=== PATIENT | female | born 1985 | race African-American/Black ===

== ENCOUNTER 2020-09-09 11:41 | Outpatient (CLI) | payer OTHER, SELFPAY ==
[2020-09-09 12:52] LABS: T4 Thyroxine 8.68 ug/dL (5.53-11.0)
[2020-09-12 13:08] LABS: FSH 7.5 mIU/mL (***); LH 4.4 mIU/mL (***); Progesterone <0.2 ng/mL (***)
== END 2020-09-09 11:42 | disposition home or self-care (01) ==
PROVIDERS: PCP Internal Medicine; Visit Provider Obstetrics & Gynecology
DX: N92.6 Irregular menstruation, unspecified (principal)
CPT/HCPCS: 36415; 83001; 83002; 84144; 84436; 84443

== ENCOUNTER 2021-08-21 17:40 | Emergency (ER) | payer OTHER, SELFPAY ==
--- NOTE | 2021-08-21 17:50 | PC.NURSE ---
pt left department without triage
== END 2021-08-22 00:11 | disposition left against medical advice (07) ==
DX: Z53.21 Procedure and treatment not carried out due to patient leaving prior to being seen by health care provider (principal)
CPT/HCPCS: 36415; 84702; 99199

== ENCOUNTER 2021-08-21 18:00 | Outpatient (RCR) | payer OTHER, SELFPAY ==
[2021-08-21 18:56] LABS: Beta HCG Quantitative 334.79 mIU/ML
== END 2021-11-19 23:59 | disposition home or self-care (01) ==
LOC: ANHLAB 18:00
PROVIDERS: Emergency Medicine; PCP Internal Medicine
DX: Z32.00 Encounter for pregnancy test, result unknown (principal)
CPT/HCPCS: 36415; 84702

== ENCOUNTER 2021-08-22 17:31 | Outpatient (CLI) | payer OTHER, SELFPAY | END 2021-08-22 17:32 | disposition home or self-care (01) | DX: Z32.00 Encounter for pregnancy test, result unknown (principal) | CPT/HCPCS: 36415; 84702 ==

== ENCOUNTER 2021-11-20 15:51 | Outpatient (CLI) | payer OTHER, SELFPAY ==
[2021-11-20 16:14] LABS: Basophils Percent Auto 0.4 % (0.2-1.2); Eosinophils Absolute Auto 0.2 K/mm3 (0-0.3); Eosinophils Percent Auto 1.7 % (0-4.4); Hematocrit 34.9 % (37.0-47.0); Immature Granulocyte Absolute 0.06 K/mm3 (0.00-0.031); Immature Granulocyte Percent A 0.6 % (0-0.5); Lymphocytes Absolute Auto 1.92 K/mm3 (0.9-3.2); Lymphocytes Percent Auto 18.2 % (18.3-44.2); Mean Corpuscular HGB Conc 34.4 g/dl (32-36); Mean Corpuscular Volume 95.9 fl (80-100); Mean Platelet Volume 9.5 fl (7.4-10.4); Monocytes Absolute Auto 0.7 K/mm3 (0.1-0.6); Monocytes Percent Auto 6.7 % (2.6-8.5); Neutrophils Absolute Auto 7.6 K/mm3 (1.3-6.7); Neutrophils Percent Auto 72.4 % (45.5-73.1); Platelet Count Result 354 k/mm3 (150-375); Red Blood Count 3.64 M/mm3 (4.2-5.4); Red Cell Distribution Width 13.3 % (11.5-14.5); White Blood Count 10.5 K/mm3 (4.5-10.0)
[2021-11-20 18:14] LABS: HIV 1/2 Ab P24 Ag Result Negative (Negative)
[2021-11-21 00:32] LABS: Hepatitis B Surface Antigen Negative (Negative); Hepatitis C Virus Antibody Negative (Negative)
[2021-11-21 09:57] LABS: Rapid Plasma Reagin Non-Reactive (NonReactive)
== END 2021-11-20 15:52 | disposition home or self-care (01) ==
LOC: ANHLAB 15:54
PROVIDERS: Visit Provider Obstetrics & Gynecology
DX: Z34.90 Encounter for supervision of normal pregnancy, unspecified, unspecified trimester (principal); Z3A.00 Weeks of gestation of pregnancy not specified
CPT/HCPCS: 36415; 85025; 86592; 86703; 86803; 86850; 86900; 86901; 87340; G0432

== ENCOUNTER 2022-03-23 11:30 | Outpatient (RCR) | payer OTHER, SELFPAY ==
--- NOTE | ~2022-03-23 | US_ITS ---
US OB limited 03/30/2022 14:36 Indication: Low JOSIE. Procedure: High-resolution Limited obstetrical ultrasound Comparison: Ultrasound dated 03/23/2022 Findings: There is a single living intrauterine in vertex presentation. Placenta is anterio r without previa. Amniotic fluid index is normal measuring 12.5 cm. heart rate is 142 BPM. Impression: 1: Normal amniotic fluid index measures 12.5 cm (normal range for gestational age is 7.7-24.9 cm). Reviewed, dictated and finalized at location A. Impression: 1: Normal amniotic fluid index measures 12.5 cm (normal range for gestational a ge is 7.7-24.9 cm).
--- NOTE | ~2022-03-23 | US_ITS ---
US OB limited DATE: 03/23/2022 12:44 INDICATION: Decreased amniotic fluid measurement at doctor's office TECHNIQUE: Real-time imaging and Doppler analysis COMPARISON: None FINDINGS: Live altamirano intrauterine gestation with fetus in longitudinal lie, vertex presentation. heart rate of 141 bpm. Anterior placenta. Subjectively normal amount of amniotic fluid. Amniotic fluid index measures 13.1 cm, within normal ra nge. (5th percentile JOSIE: 7.9 cm; 95th percentile JOSIE: 24.9 cm) IMPRESSION: Amniotic fluid index measures 13.1 cm Reviewed, dictated and finalized at Location A. Reviewed, dictated and finalized at location B.
[2022-03-23 11:42] VITALS: BP 127/69; PULSE 82
--- NOTE | 2022-03-23 12:59 | PC.NURSE ---
Called Dr. Roldan,per her request, with NST and JOSIE results. Orders to d/c patient received.
[2022-03-30 14:49] VITALS: BP 130/66; PULSE 81
== END 2022-04-24 10:16 | disposition home or self-care (01) ==
LOC: ANHLDR 11:30
PROVIDERS: PCP Internal Medicine; Visit Provider Obstetrics & Gynecology
DX: O09.513 Supervision of elderly primigravida, third trimester (principal); Z3A.00 Weeks of gestation of pregnancy not specified
CPT/HCPCS: 59025; 76815

== ENCOUNTER 2022-04-05 22:16 | Observation (INO) | payer OTHER, SELFPAY ==
[2022-04-05 23:46] VITALS: BP 121/72; PULSE 77
[2022-04-06 00:01] VITALS: BP 126/70; PULSE 77
--- NOTE | 2022-05-04 07:53 | PM.OBTRLD ---
OB - Triage/Final Diagnosis Visit Information Comments/Additional reasons for admission: I have assessed the risk for this patient, Delaney Babb, and determined that she would benefit from observation care. Final Diagnosis (1) False labor: Code(s): O47.9 - False labor, unspecified Status: Acute
== END 2022-04-06 01:05 | disposition home or self-care (01) ==
PROVIDERS: Admitting Provider Obstetrics & Gynecology; PCP Internal Medicine; Visit Provider Obstetrics & Gynecology
DX: O47.9 False labor, unspecified (principal); Z3A.00 Weeks of gestation of pregnancy not specified
CPT/HCPCS: G0378; G0379

== ENCOUNTER 2022-04-06 05:03 | Observation (INO) | payer OTHER, SELFPAY ==
[2022-04-06] VITALS (9 sets, daily range): BP systolic 107–130; BP diastolic 59–78; PULSE 75–94; BMI 35.9
[2022-04-06] MEDS: NALBUPHINE HCL INJ 10 MG/ML AMPUL IM (05:52)
[2022-04-06] MEDS: NALBUPHINE HCL INJ 10 MG/ML AMPUL IV PUSH (05:53)
[2022-04-06] MEDS: LACTATED RINGERS 1,000 ML 100 ML IV CONT (05:53)
[2022-04-06 08:00] LABS: Appearance Urine Clear (Clear); Bilirubin Urine Negative (Negative); Color Urine Yellow (Yellow); Glucose Urine UA Negative (Negative); Ketones Urine Negative (Negative); Leukocyte Esterase Ur Negative LEU/UL (Negative); Nitrate Urine Negative (Negative); Protein Urine Negative (Negative); Urobilinogen Urine 0.2 mg/dL (<2.0); pH Urine 6.5 (5.0-9.0)
[2022-04-06 08:14] LABS: Add Urine Microscopic? YES; Blood Urine Trace-Intact (Negative)
[2022-04-06 08:16] LABS: Squamous Epithelial Cell Urine Occasional /hpf (Few); WBC Urine 0-3 /hpf
--- NOTE | 2022-05-04 13:00 | PM.OBTRLD ---
OB - Triage/Final Diagnosis Visit Information Comments/Additional reasons for admission: I have assessed the risk for this patient, Delaney Babb, and determined that she would benefit from observation care. Evaluation Laboratory results: Laboratory Tests 04/06/22 06:38 Urine Color Yellow Urine Appearance Clear Urine pH 6.5 Ur Specific [place] 1.010 Urine Protein Negative Urine Glucose (UA) Negative Urine Ketones Negative Ur Blood (Man) Trace-intact Urine Nitrate Negative Urine Bilirubin Negative Urine Urobilinogen 0.2 Leukocyte Esterase Rfl Negative Urine WBC 0-3 Ur Squamous Epith Cells Occasional Final Diagnosis (1) False labor: Code(s): O47.9 - False labor, unspecified Status: Acute
== END 2022-04-06 09:43 | disposition home or self-care (01) ==
PROVIDERS: Admitting Provider Obstetrics & Gynecology; PCP Internal Medicine; Visit Provider Obstetrics & Gynecology
DX: O47.9 False labor, unspecified (principal); Z3A.00 Weeks of gestation of pregnancy not specified
CPT/HCPCS: 81001; 96372; 96374; G0378; G0379; J2300; J7120

== ENCOUNTER 2022-04-08 14:18 | Outpatient (CLI) | payer OTHER, SELFPAY ==
--- NOTE | ~2022-04-08 | US_ITS ---
EXAMINATION: US renal BI DATE: 04/08/2022 15:58 INDICATION: Unspecified renal colic TECHNIQUE: Multiple ultrasound grayscale images of the kidneys were obtained. COMPARISON: None. FINDINGS: The right kidney measures 10.4 x 4.8 x 5.9 cm. The left kidney measures 10.5 x 5.8 x 5.7 cm. The kidn eys demonstrate normal echogenicity. There are normal arterial resistive indices in both kidneys rang ing from 0.67, 0.64 on the right and 0.64-0.66 on the left. Mild left hydronephrosis. No right-sided hydronephrosis. No stones identified. The bladder is partially decompressed bladder is normal. Appea r to be some mass effect upon the dome of the bladder from the partially visualized gravid uterus whi ch is not diagnostically evaluated. IMPRESSION: 1. Mild left hydronephrosis. Reviewed, dictated and finalized at location B.
== END 2022-04-08 14:19 | disposition home or self-care (01) ==
LOC: ANHIMG 14:18
PROVIDERS: PCP Internal Medicine; Visit Provider Obstetrics & Gynecology
DX: N23 Unspecified renal colic (principal); N13.30 Unspecified hydronephrosis
CPT/HCPCS: 76775

== ENCOUNTER 2022-04-19 18:49 | Inpatient (IN) | payer OTHER, SELFPAY ==
[2022-04-19] VITALS (19 sets, daily range): BP systolic 117–144; BP diastolic 63–93; PULSE 68–90; TEMP 36.2; BMI 36.5
--- NOTE | 2022-04-19 19:11 | LDADM ---
This patient, Delaney Babb, was admitted to Labor/Delivery/Recovery 107 on 04/19/22 at 18:49. Plans for labor, pain management and were discussed with patient. Patient/family oriented to hospital policies and general routines including ID bracelet, bed and alarms, visiting hours, pain management, procedures, bathroom and other care routines, personal items, smoking policy, room service/diet and guest tray routines, security routines, and visiting hours. Patient/Family are encouraged to report perceived risks to care and to ask questions if they do not understand what they are told or what they should do. See OBIX for further documentation.
[2022-04-19] MEDS: OXYTOCIN 30 UNITS/NS 500 ML 30 UNITS/500 ML BAG IV CONT (19:21)
[2022-04-19] MEDS: LACTATED RINGERS 1,000 ML 125 ML IV CONT (19:21)
[2022-04-19 19:27] LABS: Basophils Percent Auto 0.4 % (0.2-1.2); Eosinophils Absolute Auto 0.1 K/mm3 (0-0.3); Eosinophils Percent Auto 1.5 % (0-4.4); Hematocrit 33.5 % (37.0-47.0); Hemoglobin 11.1 g/dL (12.0-15.0); Immature Granulocyte Absolute 0.09 K/mm3 (0.00-0.031); Lymphocytes Absolute Auto 1.31 K/mm3 (0.9-3.2); Lymphocytes Percent Auto 14.1 % (18.3-44.2); Mean Corpuscular HGB Conc 33.1 g/dl (32-36); Mean Corpuscular Hemoglobin 32.3 pg (26-34); Mean Corpuscular Volume 97.4 fl (80-100); Mean Platelet Volume 10.4 fl (7.4-10.4); Monocytes Absolute Auto 0.8 K/mm3 (0.1-0.6); Monocytes Percent Auto 8.7 % (2.6-8.5); Neutrophils Absolute Auto 6.9 K/mm3 (1.3-6.7); Neutrophils Percent Auto 74.3 % (45.5-73.1); Platelet Count Result 252 k/mm3 (150-375); Red Blood Count 3.44 M/mm3 (4.2-5.4); Red Cell Distribution Width 16.3 % (11.5-14.5); White Blood Count 9.3 K/mm3 (4.5-10.0)
[2022-04-20] VITALS (105 sets, daily range): BP systolic 85–153; BP diastolic 44–113; PULSE 64–193; RESP 18; TEMP 36–36.8; O2SAT 90–100
--- NOTE | 2022-04-20 05:49 | WPDANESEPP ---
Anes - Eval Pre Procedure Procedure: labor epidural Date/Time: 04/20/22 05:49 Surgeon: oscar Preop Diagnosis: pain during labor Pre Op Diagnosis: IOL Patient Data Age: 36 Gender: F Height: 1.65 m Weight: 99.5 kg Last Vital Signs Temp 36.2 C L 04/20/22 04:18 Pulse 76 04/20/22 05:46 BP 134/88 04/20/22 05:46 O2 Del Method Room Air 04/19/22 19:10 Allergies Allergy/AdvReac Type Severity Reaction Status Date / Time adhesive tape Allergy Unknown Rash Verified 04/20/22 03:48 Home Medications Medication Instructions Recorded Confirmed Type docosahexaenoic acid 200 mg mg PO 10/01/21 04/06/22 History capsule ( DHA) valacyclovir 500 mg tablet 500 mg PO DAILY #90 tabs 11/27/21 04/20/22 Rx (Valtrex) ferrous sulfate 325 mg (65 mg 325 mg PO DAILY #90 tabs 03/04/22 04/06/22 Rx iron) tablet sertraline 50 mg tablet (Zoloft) 50 mg PO DAILY #30 tabs 04/02/22 04/20/22 Rx cyclobenzaprine 10 mg tablet 10 mg PO TID PRN muscle spasm #10 04/08/22 04/08/22 Rx tabs Laboratory Tests 04/19/22 04/19/22 04/19/22 19:18 19:18 19:18 WBC 9.3 K/mm3 K/mm3 (4.5-10.0) RBC 3.44 M/mm3 L M/mm3 (4.2-5.4) Hgb 11.1 g/dL L g/dL (12.0-15.0) Hct 33.5 % L % (37.0-47.0) MCV 97.4 fl fl (80-100) MCH 32.3 pg pg (26-34) MCHC 33.1 g/dl g/dl (32-36) RDW 16.3 % H % (11.5-14.5) Plt Count 252 k/mm3 k/mm3 (150-375) MPV 10.4 fl fl (7.4-10.4) Immature Gran % (Auto) 1.0 % H % (0-0.5) Neut % (Auto) 74.3 % H % (45.5-73.1) Lymph % (Auto) 14.1 % L % (18.3-44.2) [place] % (Auto) 8.7 % H % (2.6-8.5) Eos % (Auto) 1.5 % % (0-4.4) Baso % (Auto) 0.4 % % (0.2-1.2) Lymph # (Auto) 1.31 K/mm3 K/mm3 (0.9-3.2) [place] # (Auto) 0.8 K/mm3 H K/mm3 (0.1-0.6) Eos # (Auto) 0.1 K/mm3 K/mm3 (0-0.3) Baso # (Auto) 0.0 K/mm3 K/mm3 (0.0-0.1) Abs Immat Gran (auto) 0.09 K/mm3 H K/mm3 (0.00-0.031) Absolute Neuts (auto) 6.9 K/mm3 H K/mm3 (1.3-6.7) Absolute Nucleated RBC 0.0 K/mm3 K/mm3 (0.0-0.012) Nucleated RBC % 0.0 % % (0.0-0.2) RPR Pending Blood Type O Positive Antibody Screen Negative Patient hx anesthesia problems: none Family hx anesthesia problems: none Results Review: All pre-operative results and documents have been reviewed as part of the pre-operative evaluation. [facility] Past Medical History Medical History Asthma HSV infection Surgical History Surgical History H/O dilation and curettage H/O tubal ligation History of colposcopy History of tonsillectomy Family History Family History Father Hypertension Family history of elevated blood lipids Social History Social History Smoking status: Never smoker Second hand tobacco smoke exposure: No Alcohol intake: current Substance use: never Spiritual care concerns: No Exam Day of Procedure 04/20/22 05:49
[2022-04-20] MEDS: LACTATED RINGERS 1,000 ML 125 ML IV CONT (09:36)
--- NOTE | 2022-04-20 10:23 | PM.IMHP ---
H&P: HPI History of Present Illness Date/Time: 04/20/22 10:23 Chief Complaint: Medical induction of labor Narrative: Patient at 39 1/7 weeks admitted for [facility] social. EDC 04/25/2022 by IVF conception date. She had IVF secondary to prior tubal sterilization, new partner. PNC significant for AMA, grandmultip. H/o HSV. She is on suppression. She had normal survey and normal echo. echo performed due to IVF conception. GBS neg. labs reviewed. She has been counseled on risk benefit of MIL. She has opted for induction. She denies any HSV symptoms. Review of Systems Review of Systems: All systems reviewed & are unremarkable except as noted in HPI and below Constitutional: Constitutional: Reports no additional constitutional complaints and Denies headache(s) Eyes: Eyes: Denies spots in vision ENT: Reports system reviewed and no additional complaints, except as documented and Denies headache(s) Cardiovascular: Cardiovascular: Denies chest pain and Denies dyspnea Respiratory: Respiratory: Denies dyspnea Gastrointestinal: Gastrointestinal: Reports no additional gastrointestinal complaints Genitourinary: Genitourinary: Reports amenorrhea Musculoskeletal: Musculoskeletal: Reports no additional musculoskeletal complaints Integumentary/Breasts: Skin/Breast: Denies breast mass and Denies rash Neurologic: Denies headache(s) Psychiatric: Psychiatric: Reports no additional psychiatric complaints [facility] Past Medical History Medical History Asthma HSV infection Surgical History Surgical History H/O dilation and curettage H/O tubal ligation History of colposcopy History of tonsillectomy Family History Family History Father Hypertension Family history of elevated blood lipids Social History Social History Smoking status: Never smoker Second hand tobacco smoke exposure: No Alcohol intake: current Substance use: never Spiritual care concerns: No Meds Home Medications and Allergies Home Medications Medication Instructions Recorded Confirmed Type docosahexaenoic acid 200 mg mg PO 10/01/21 04/06/22 History capsule ( DHA) valacyclovir 500 mg tablet 500 mg PO DAILY #90 tabs 11/27/21 04/20/22 Rx (Valtrex) ferrous sulfate 325 mg (65 mg 325 mg PO DAILY #90 tabs 03/04/22 04/06/22 Rx iron) tablet sertraline 50 mg tablet (Zoloft) 50 mg PO DAILY #30 tabs 04/02/22 04/20/22 Rx cyclobenzaprine 10 mg tablet 10 mg PO TID PRN muscle spasm #10 04/08/22 04/08/22 Rx tabs Allergies Allergy/AdvReac Type Severity Reaction Status Date / Time adhesive tape Allergy Unknown Rash Verified 04/20/22 03:48 Vital Signs Vital Signs - 24 hr 04/19/22 19:11 04/19/22 19:16 04/19/22 19:31 Temperature Pulse Rate 90 88 87 Blood Pressure 143/92 H 141/90 H 136/83 Oxygen Delivery 04/19/22 19:46 04/19/22 20:01 04/19/22 20:16 Temperature Pulse Rate 81 81 79 Blood Pressure 144/90 H 140/86 134/86 Oxygen Delivery 04/19/22 20:31 04/19/22 21:15 04/19/22 21:17 Temperature 97.2 F L Pulse Rate 80 81 79 Blood Pressure 136/77 130/81 137/80 Oxygen Delivery 04/19/22 21:31 04/19/22 21:46 04/19/22 22:01 Temperature Pulse Rate 86 82 68 Blood Pressure 135/93 H 139/85 141/81 H Oxygen Delivery 04/19/22 22:16 04/19/22 22:31 04/19/22 22:46 Temperature Pulse Rate 89 88 77 Blood Pressure 133/83 126/83 136/86 Oxygen Delivery 04/19/22 23:01 04/19/22 23:16 04/19/22 23:31 Temperature Pulse Rate 77 79 84 Blood Pressure 117/63 118/64 131/64 Oxygen Delivery 04/19/22 23:46 04/20/22 00:01 04/20/22 00:05 Temperature 97.5 F L Pulse Rate 84 81 Blood Pressure 129/74 135/71 Oxygen Delivery 04/20/22 00
[2022-04-20 10:35] LABS: Rapid Plasma Reagin Non-Reactive (NonReactive)
--- NOTE | 2022-04-20 10:45 | PM.OBPNVD ---
OB - PN: Subj Subjective Date/time seen: 04/20/22 10:45 Interval history: FHT 140 Cat 1 ctx q 4 cervix 3/60/-2. AROM clearat 0727. Continue pitocin. OB - PN: Obj Data Labs CBC & Chem 7: 04/19/22 19:18 Labs: Laboratory Results - last 24 hr 04/19/22 04/19/22 04/19/22 19:18 19:18 19:18 WBC 9.3 RBC 3.44 L Hgb 11.1 L Hct 33.5 L MCV 97.4 MCH 32.3 MCHC 33.1 RDW 16.3 H Plt Count 252 MPV 10.4 Immature Gran % (Auto) 1.0 H Neut % (Auto) 74.3 H Lymph % (Auto) 14.1 L [place] % (Auto) 8.7 H Eos % (Auto) 1.5 Baso % (Auto) 0.4 Lymph # (Auto) 1.31 [place] # (Auto) 0.8 H Eos # (Auto) 0.1 Baso # (Auto) 0.0 Abs Immat Gran (auto) 0.09 H Absolute Neuts (auto) 6.9 H Absolute Nucleated RBC 0.0 Nucleated RBC % 0.0 RPR Non-reactive Blood Type O Positive Antibody Screen Negative OB - PN A/P Time Spent With Patient Time: Total time spent is greater than 50% in coordination of care (as documented) at patient's floor/unit and/or counseling patient:
--- NOTE | 2022-04-20 11:35 | WPDANESEPPF ---
Anes - Initial Pre Proc Eval Date/Time: 04/20/22 11:35 Surgeon: Akash Roldan MD Pre Op Diagnosis: IOL Patient Data Age: 36 Gender: F Height: 1.65 m Weight: 99.5 kg Last Vital Signs Temp 36.0 C L 04/20/22 10:25 Pulse 81 04/20/22 11:35 BP 132/72 04/20/22 11:35 Pulse Ox 98 04/20/22 11:34 O2 Del Method Room Air 04/19/22 19:10 Allergies Allergy/AdvReac Type Severity Reaction Status Date / Time adhesive tape Allergy Unknown Rash Verified 04/20/22 03:48 Home Medications Medication Instructions Recorded Confirmed Type docosahexaenoic acid 200 mg mg PO 10/01/21 04/06/22 History capsule ( DHA) valacyclovir 500 mg tablet 500 mg PO DAILY #90 tabs 11/27/21 04/20/22 Rx (Valtrex) ferrous sulfate 325 mg (65 mg 325 mg PO DAILY #90 tabs 03/04/22 04/06/22 Rx iron) tablet sertraline 50 mg tablet (Zoloft) 50 mg PO DAILY #30 tabs 04/02/22 04/20/22 Rx cyclobenzaprine 10 mg tablet 10 mg PO TID PRN muscle spasm #10 04/08/22 04/08/22 Rx tabs Laboratory Tests 04/19/22 04/19/22 04/19/22 19:18 19:18 19:18 WBC 9.3 K/mm3 K/mm3 (4.5-10.0) RBC 3.44 M/mm3 L M/mm3 (4.2-5.4) Hgb 11.1 g/dL L g/dL (12.0-15.0) Hct 33.5 % L % (37.0-47.0) MCV 97.4 fl fl (80-100) MCH 32.3 pg pg (26-34) MCHC 33.1 g/dl g/dl (32-36) RDW 16.3 % H % (11.5-14.5) Plt Count 252 k/mm3 k/mm3 (150-375) MPV 10.4 fl fl (7.4-10.4) Immature Gran % (Auto) 1.0 % H % (0-0.5) Neut % (Auto) 74.3 % H % (45.5-73.1) Lymph % (Auto) 14.1 % L % (18.3-44.2) [place] % (Auto) 8.7 % H % (2.6-8.5) Eos % (Auto) 1.5 % % (0-4.4) Baso % (Auto) 0.4 % % (0.2-1.2) Lymph # (Auto) 1.31 K/mm3 K/mm3 (0.9-3.2) [place] # (Auto) 0.8 K/mm3 H K/mm3 (0.1-0.6) Eos # (Auto) 0.1 K/mm3 K/mm3 (0-0.3) Baso # (Auto) 0.0 K/mm3 K/mm3 (0.0-0.1) Abs Immat Gran (auto) 0.09 K/mm3 H K/mm3 (0.00-0.031) Absolute Neuts (auto) 6.9 K/mm3 H K/mm3 (1.3-6.7) Absolute Nucleated RBC 0.0 K/mm3 K/mm3 (0.0-0.012) Nucleated RBC % 0.0 % % (0.0-0.2) RPR Non-reactive (NonReactive) Blood Type O Positive Antibody Screen Negative Patient hx anesthesia problems: none Family hx anesthesia problems: none Results Review: All pre-operative results and documents have been reviewed as part of the pre-operative evaluation. [facility] Past Medical History Medical History Asthma HSV infection Surgical History Surgical History H/O dilation and curettage H/O tubal ligation History of colposcopy History of tonsillectomy Family History Family History Father Hypertension Family history of elevated blood lipids Social History Social History Smoking status: Never smoker Second hand tobacco smoke exposure: No Alcohol intake: current Substance use: never Spiritual care concerns: No Anes - Eval Final PreProcedure Day of Procedure 04/20/22 11:35 Patient weight: obese Heart: regular rate and rhythm Lungs: clear to auscultation Neurological: alert and oriented ASA classification: III Emergent: no Anesthetic plan: proceed Anesthesia type and monitoring: regional epidural and standard monitoring Results Review: All pre-operative results and documents have been reviewed as part of the pre-operative evaluation. Informed Consent: The patient's anesthetic plan and its attendant risks and benefits were discussed with the patient/family/POA. Questions were solicited and answers provided to the satisfaction of the patient/family/POA.
--- NOTE | 2022-04-20 13:00 | PM.OBPRVD ---
OB - Delivery Note Procedure Delivery date: 04/20/22 Procedure: Spontaneous vaginal delivery Induction method: Per Pitocin Protocol Delivery augmentation: Rupture of Membranes (clear at 0727) Delivery monitor: External FHT Route of delivery: Episiotomy description: None Laceration Description: None Specimen: No Quantitative Blood Loss (ml): 300 Anesthesia type: Epidural Disposition: Floor Complications: None Narrative: Patient admitted for MIL on evening of 04/19/2022. She was started on Pitocin. She started having contractions the morning of 04/20/2022. She had AROM clear at 0727. She progressed to active labor. She received an epidural upon request. She was 4-5 at that time. Epidural placed. She progressed to complete. She pushed once and delivered a female infant over intact perineum. Anterior shoulders delivered and the rest of the infant was delivered. 's nose and mouth suctioned with bulb. placed on maternal abdomen. Delayed cord clamping for 45 seconds until cord was a pulsatile. Cord gases and cord blood obtained. Pitocin was started. Placenta delivered spontaneously and intact. There were trailing membranes which were eased out with the ring forceps. The lower uterine cavity was explored and small amount of membranes obtains. She had a small gush of blood. The cavity was swept and minimal membranes obtained. Uterus firm. She was given 1000ug cytotec and Trenexamic acid for the persistent lochia and her risk of bleeding. Baby Date of : 04/20/22 Time of : 12:44 Weeks of gestation at delivery: 39 gender: Female Weight (pounds): 7 Weight (ounces): 3 presentation: vertex position: Right Occiput Anterior Placenta delivery description: Spontaneous and Expressed (trailing membranes) Cord Vessel Description: Delayed Cord Clamping score one minute: 8 score five minutes: 8
[2022-04-20] MEDS: miSOPROStol 200 MCG TABLET 1000 MCG RECTAL (13:07)
[2022-04-20] MEDS: OXYTOCIN 30 UNITS/NS 500 ML 30 UNITS/500 ML BAG 125 UNITS IV CONT (13:09)
[2022-04-20] MEDS: TRANEXAMIC ACID 1,000 MG/10 ML AMPUL 1000 MG IV PUSH (13:15)
[2022-04-20] MEDS: ACETAMINOPHEN 325 MG TABLET 650 MG PO (20:05)
[2022-04-20] MEDS: IBUPROFEN 600 MG TABLET PO (20:05)
[2022-04-20] MEDS: LANOLIN (LANSINOH) 7.5 GM CREAM 1 APPLIC TOPICAL (20:07)
[2022-04-21] MEDS: IBUPROFEN 600 MG TABLET PO ×2 (02:23→09:12)
[2022-04-21] MEDS: ACETAMINOPHEN 325 MG TABLET 650 MG PO ×2 (02:23→09:12)
[2022-04-21 04:10] VITALS: BP 119/75; PULSE 86; RESP 18; TEMP 36.7
[2022-04-21 05:16] LABS: Hematocrit 29.6 % (37.0-47.0); Hemoglobin 9.8 g/dL (12.0-15.0)
--- NOTE | 2022-04-21 08:00 | P.PNOB_ITS ---
OB - PN: Subj Subjective Date/time seen: 04/21/22 08:00 Interval history: She has some back pain. She is tolerating Tylenol and Motrin. Patient comments: pain well controlled, tolerating diet and other (Decreasing lochia.) baby status: doing well and nursing well [place] feeding status: exclusively breast feeding OB - PN: Obj Data Labs CBC & Chem 7: 04/21/22 03:46 Labs: Laboratory Results - last 24 hr 04/19/22 04/21/22 19:18 03:46 Hgb 9.8 L Hct 29.6 L RPR Non-reactive OB - PN A/P Plan day: 1 Plan: routine care Comments: Patient doing well. She wants to go home. Discussed discharge precautions. Discharge home today. Time Spent With Patient Time: Total time spent is greater than 50% in coordination of care (as documented) at patient's floor/unit and/or counseling patient: Exam Const: General: comfortable and no acute distress Eyes: General: appearance normal, both eyes and all related structures Resp: Effort & Inspection: normal respiratory effort GI: Inspection: normal to inspection Other: fundus firm below umbilicus nontender : Other: perineum normal Neuro: General: oriented to person, oriented to place and oriented to time Extrem: General: normal to inspection (no calf tenderness, trace edema) Psych: Affect: normal affect Other: Abd: fundus firm below umbilicus, nontender Perineum: healing Ext: nontender
--- NOTE | 2022-04-21 08:04 | PM.DS ---
DS: Admitting Diagnosis Discharge Date 04/21/2022 Admitting Diagnosis Medical induction of labor DS: Discharge Diagnosis Discharge Diagnosis (1) Encounter for induction of labor: Code(s): Z34.90 - Encounter for supervision of normal , unspecified, unspecified trimester Status: Acute DS: Summary Hospital Course Reason for hospitalization: medical induction of labor Hospital Course: Patient admitted on 04/19/2022 for induction of labor with Pitocin. She had an uncomplicated vaginal delivery on 04/20/2022 of a baby girl. she did well. She was ambulating well, tolerating regular diet, had adequate pain control. She had mild antepartum and anemia, asymptomatic. She was on iron supplementation. She was discharged home on 04/21/2022. Discharge precautions discussed. Status at Discharge Functional status at discharge: independent ambulation Time Spent with Patient Time attestation: Total time spent providing and/or coordinating discharge services: Exam Const: General: cooperative Orientation/consciousness: oriented to person, oriented to place and oriented to time HENMT: General nose exam: Normal external nose present Eyes: General: appearance normal, both eyes and all related structures Resp: Effort & Inspection: normal respiratory effort GI: Inspection: normal to inspection Skin: General skin exam: normal color Neuro: General: oriented to person, oriented to place and oriented to time Extrem: General: normal to inspection and no calf tenderness Psych: Appearance: grossly normal Mental Status: mental status grossly normal DS: Data Data Completed and Pending Labs on day of discharge: Labs from last 24 hours 04/21/22 04/19/22 03:46 19:18 Hgb 9.8 L Hct 29.6 L RPR Non-reactive Procedures/Treatments: Induction of labor. Spontaneous vaginal delivery. Discharge Plan Discharge Attending physician on discharge: Akash Roldan Consulting providers: Larry Durant Discharging Clinician: Aaksh Roldan Anticipated Discharge Date/Time: 04/21/22 07:57 Patient Disposition: Home, Self-Care Activity: may shower and pelvic rest Diet: regular Discharge Instructions: Pelvic rest for 4-6 weeks. May take over the counter Ibuprofen or Tylenol for pain. Call if saturating more than a pad an hour, leg redness, pain and swelling, temperature>100.4. No strenuous activity. Take daily vitamin. Take daily iron supplement, 325mg ferrous sulfate daily for one month. Patient Instructions: Antibiotic Form Stand Alone Forms: General Discharge Information Follow-up/Referrals: Akash Roldan MD [Physician] - 4 Weeks Discharge Medications: No Action cyclobenzaprine 10 mg tablet 10 mg PO TID PRN (Reason: muscle spasm) Qty: 10 0RF DHA 200 mg capsule PO valacyclovir [Valtrex] 500 mg tablet 500 mg PO DAILY Qty: 90 2RF ferrous sulfate 325 mg (65 mg iron) tablet 325 mg PO DAILY Qty: 90 0RF sertraline [Zoloft] 50 mg tablet 50 mg PO DAILY Qty: 30 1RF Rx Instructions: start after completing the 25mg dose Date of admission: 04/19/22 18:49 Primary Care Provider: Maureen Vee Admitting Provider: Akash Roldan Attending physician on admission: Akash Roldan Condition: Stable
[2022-04-21 09:10] VITALS: BP 126/80; PULSE 89; RESP 16; TEMP 36.8; O2SAT 97
[2022-04-21] MEDS: MULTIVIT/MIN/PREN/FOL AC/IRON TABLET 1 TAB PO (09:12)
[2022-04-21] MEDS: DOCUSATE SODIUM 100 MG CAPSULE PO (09:12)
[2022-04-21] MEDS: TETANUS,DIPHTHERIA,AC PERTUSSIS ADULT (0.5 ML) BOOSTRIX IM (09:17)
--- NOTE | 2022-04-21 09:17 | WPDANLDPN2 ---
Anes-Prog Note L&D Date/Time: 04/21/22 09:17 Comfortable throughout: labor and delivery Neuraxial method: epidural Epidural/Spinal procedure site: clean & non-tender Neuro status: Neuro function grossly intact. Cardiovascular status: normal Respiratory status: normal Airway patency: baseline Mental status: baseline Post-Op hydration status: normal Vital Signs: Last Vital Signs Temp 98.0 F 04/21/22 04:10 Pulse 86 04/21/22 04:10 Resp 18 04/21/22 04:10 BP 119/75 04/21/22 04:10 Pulse Ox 100 04/20/22 12:42 O2 Del Method Room Air 04/21/22 04:14 Pain score (VAS): 0 Post-procedural complaints: none Patient feedback: Patient satisfied with anesthetic care.
[2022-04-21 12:00] VITALS: BP 138/81; PULSE 82; RESP 16; TEMP 36.8; O2SAT 98
[2022-04-22 10:35] VITALS: BP 124/76; PULSE 92; RESP 18; TEMP 37.4; O2SAT 100
== END 2022-04-21 14:34 | disposition home or self-care (01) | DRG 807 ==
LOC: ANHLDR 20:50 → ANHOB2 04-20 15:48
PROVIDERS: Admitting Provider Obstetrics & Gynecology; PCP Internal Medicine; Visit Provider Obstetrics & Gynecology
DX: O98.52 Other viral diseases complicating childbirth (principal); Z37.0 Single live birth; B00.9 Herpesviral infection, unspecified; O43.893 Other placental disorders, third trimester; O99.02 Anemia complicating childbirth; O76 Abnormality in fetal heart rate and rhythm complicating labor and delivery; Z3A.39 39 weeks gestation of pregnancy
CPT/HCPCS: 36415; 85014; 85018; 85025; 86592; 86850; 86900; 86901; 90715; A9270; J2590; J2795; J7120

== ENCOUNTER 2022-09-11 11:30 | Outpatient (RCR) | payer OTHER, SELFPAY ==
--- NOTE | 2022-09-04 14:07 | PTOPEVAL1 ---
Assessment and note entered by Eimly Andrade DPT Evaluation Information Assessment Status Evaluation Reported Pain Level Pain Score 0: Self Report Additional Pain Score Comments Pt reports pain 0/10-7/10 highest in her low back and pelvic floor. Pt has a history of 7 vaginal deliveries, most recent 04/20/22. She reports pain with walking, sit to stand, and bed transfers and has had pain with pelvic exam, tampon use, and intercourse. Describes pain sometimes as shooting. Assessment PT Clinical Summary The patient is presenting to skilled therapy with a several month history of pelvic floor and LBP. She presents with SIJ impairments, decreased hip and core strength and pain upon palpation of pelvic floor muscles. She will benefit from therapy to address her pain and safely return to [facility]. Plan of Care Interventions Electrical Stimulation,Hot Pack/Cold Pack,Manual Therapy,Neuro Re-education,Patient/Caregiver Educati,Therapeutic Activities,Therapeutic Exercise PT Services Indicated Yes Treatment Frequency and 1 x a week for 4 weeks Duration These treatments will address the objective and functional deficits as defined above. The patient will be advanced safely and appropriately in order for the patient to progress towards his/her prior level of function. Additional exercises will be introduced and as well as a comprehensive home exercise program upon discharge, if needed, ?to ensure carryover of functional gains achieved in the clinic. This treatment plan has been reviewed and agreement upon by the patient.
--- NOTE | 2022-11-27 10:21 | PTOPDC ---
Assessment and note entered by Emily Andrade, DPT Evaluation Information Assessment Status Discharge - Pt Not Present Assessment PT Clinical Summary Patient has not attended therapy since 09/11/22. She will be discharged and need a new script to resume therapy in the future.
== END 2022-11-27 10:53 | disposition home or self-care (01) ==
LOC: ANHPT 11:30
PROVIDERS: PCP Internal Medicine; Visit Provider Obstetrics & Gynecology
DX: R10.2 Pelvic and perineal pain (principal)
CPT/HCPCS: 97110; 97140; 97530

== ENCOUNTER 2025-04-12 17:31 | Emergency (ER) | payer OTHER, SELFPAY ==
--- NOTE | ~2025-04-12 | CT_ITS ---
CT abdomen pelvis w con Ordering provider: Odilia Sullivan History: 39 years Female with . abd pain, N/V/D x 1w . Comparison: None. Technique: CT abdomen and pelvis with IV and without oral contrast. Automated exposure control and it erative reconstruction technique were employed. The dose-length product was 338.33 mGy-cm. 100 mL Omn ipaque 350 was given IV. Findings: Bilateral breast implants with rupture on the right side and adjacent fluid seen medially.. VISUALIZED LOWER CHEST: Normal. Trace of pericardial effusion. UPPER ABDOMINAL ORGANS: Liver: Normal. Gallbladder: Normal. Spleen: Varicosities are seen around the spleen which may indicate portal hypertension. Clinical misti elation advised.. Stomach/duodenum: Normal. Pancreas: Slightly prominent pancreatic tail which may indicate pancreatitis. Clinical correlation ad vised Adrenals: Normal. Kidneys: Normal. PELVIC ORGANS: The bladder is normal. BOWEL AND MESENTERY: Colon: No evidence of diverticulitis. The appendix is not demonstrated. Small Bowel: Normal. No obstruction. Peritoneum/mesentery: No free air or free fluid. No mesenteric lymphadenopathy. RETROPERITONEUM: Normal aorta. No retroperitoneal lymphadenopathy. MUSCULOSKELETAL: Superficial soft tissues: The superficial soft tissues are normal. Bones: Age appropriate degenerative changes of the spine. IMPRESSION: 1. No evidence of appendicitis, diverticulitis or intestinal obstruction. 2. Prominent pancreatic tail which may indicate pancreatitis. Clinical correlation and further evalu ation advised. 3. Prominent varicose veins around the spleen extending to the left renal vein which raises the poss ibility of portal hypertension.. Reviewed, dictated and finalized at location A. IMPRESSION: 1. No evidence of appendicitis, diverticulitis or intestinal obstruction. 2. Prominent pancreatic tail which may indicate pancreatitis. Clinical correla tion and further evaluation advised. 3. Prominent varicose veins around the spleen extending to the left renal vein which raises the possibility of portal hypertension..
--- OUTSIDE RECORDS SUMMARY | 2025-04-12 17:33 | XMS_ITS | Clinical Summary ---
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 Gender Identity Female 11/10/2024 8:39 AM COW WASHER Sexual Orientation Not on file Plan of Treatment Health Maintenance Due Date Last Done Comments DTAP/TDAP/TD VACCINES (1 - Tdap) 2004 HEPATITIS B VACCINES (1 of 3 - 19+ 3-dose series) 2004 HPV/Cotest (21-29) 2006 CERVICAL CANCER SCREENING 2015 HPV/Cotest (30-65) 2015 PAP SMEAR 2015 INFLUENZA VACCINE (#1) 2024 HPV VACCINES Aged Out No longer eligi ble based on patient's age to complete this topic Insurance AETNA CHOICE POS II Care Teams Straw Hat Machine Operator Relationship Specialty Start Date End Date Jordan Vick MD [address] [place] [id number] PCP - General Internal Medicine 10/23/21
--- NOTE | 2025-04-12 17:38 | ED_ITS ---
HPI - Nausea/Vomiting/Diarrhea General Chief complaint: Nausea/Vomiting/Diarrhea <LELE Campbell Last Filed: 04/13/25 11:04> Stated complaint: n/v/d, abd pain since 1300, lightheadedness <LELE Campbell Last Filed: 04/13/25 11:04> Time Seen by Provider: 04/12/25 17:38 <LELE Campbell Last Filed: 04/13/25 11:04> Focused HPI: This is a 39 year old female that presents to the ER for abdominal pain, nausea, vomiting. Ongoing since earlier this afternoon. GENERAL: Uncomfortable, well-nourished, and in no acute distress. HEAD: Normocephalic, atraumatic. CHEST: Clear to auscultation. ?No respiratory distress. HEART: Regular rate and rhythm.? NEURO: ?Alert and oriented x3. Patient screened in triage and initial orders placed.? ?Additional care and disposition to be based upon?diagnostic testing and treatment. <LELE Campbell Last Filed: 04/13/25 11:04> Focused HPI: This is a 39 year old female that presents to the ER for abdominal pain, nausea, vomiting. Ongoing since earlier this afternoon. GENERAL: Uncomfortable, well-nourished, and in no acute distress. HEAD: Normocephalic, atraumatic. CHEST: Clear to auscultation. ?No respiratory distress. HEART: Regular rate and rhythm.? NEURO: ?Alert and oriented x3. Patient screened in triage and initial orders placed.? ?Additional care and disposition to be based upon?diagnostic testing and treatment. <LELE Michaels Last Filed: 04/13/25 02:48> Source: patient <LELE Michaels Last Filed: 04/13/25 02:48> Mode of arrival: ambulatory <LELE Michaels Last Filed: 04/13/25 02:48> Limitations: no limitations <LELE Michaels Last Filed: 04/13/25 02:48> History of Present Illness HPI Narrative: Patient reports that symptoms have been ongoing for the past 1 week, but became worse today. She notes she has been under immense stress at work and is actually on stress leave due to this. She saw her primary care doctor earlier this week and was prescribed Bentyl. She does report that this has helped slightly with her symptoms. 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 Reported multiple episodes of emesis. Does still feel nauseous currently. Denies fevers, sick contacts, hematemesis, rectal bleeding, melena. <Odilia Sullivan PA-C - Last Filed: 04/13/25 02:48> Related Data Allergies/Adverse reactions: Allergies Allergy/AdvReac Type Severity Reaction Status Date / Time adhesive tape Allergy Unknown Rash Verified 12/28/23 15:02 <Felicia Woody PA-C - Last Filed: 04/13/25 11:04> Review of Systems 2 Review of Systems: All systems reviewed & are unremarkable except as noted in HPI. <Odilia Sullivan PA-C - Last Filed: 04/13/25 02:48> All systems reviewed & are unremarkable except as noted in HPI and below < Odilia Sullivan PA-C - Last Filed: 04/13/25 02:48> [facility] Past Medical History Medical History: Medical History HSV infection Asthma <Felicia Woody PA-C - Last Filed: 04/13/25 11:04> Surgical History Surgical History: Surgical History H/O breast augmentation H/O tubal ligation History of tonsillectomy History of colposcopy H/O dilation and curettage <Felicia Woody PA-C - Last Filed: 04/13/25 11:04> Family History Family History: Family History Father Hypertension Family history of elevated blood lipids <Felicia Woody PA-C - Last Filed: 04/13/25 11:04> Social History Social History: Social History Smoking status: Never smoker Second hand tobacco smoke exposure: No Alcohol intake: current Substance use: never Do You Feel Safe in your Home?: Yes Lack of Transportation: No Lack of Food: Never True Current Housing: I Have Housing Concerned About Future Housing: No Difficulty Paying Gas/Electric Bills: No Difficulty Paying for Meds: No Currently Unemployed: No Education: Trade/Vocational Certificate Difficulty w/ Childcare or Family Care: No Spiritual care concerns: No <Felicia Woody PA-C - Last Filed: 04/13/25 11:04> Exam 2 Narrative: GENERAL: Well appearing, well-nourished, non-toxic, in no acute distress. HEAD: Normocephalic, atraumatic. RESPIRATORY: Airway patent, respirations nonlabored. Clear to auscultation bilaterally, no rales, rhonchi, wheezing. CARDIOVASCULAR: Regular rate and rhythm without murmurs, rubs, or gallops. ABDOMINAL: Soft, mild diffuse tenderness, no significant focal tenderness or rebound, nondistended. Normoactive BS. MUSCULOSKELETAL: Moves all extremities. No gross deformities. SKIN: Warm, dry, normal color. NEURO: A&O X3. Speech clear. Cranial nerves II-XII grossly intact. Steady gait. No ataxic movements. PSYCHIATRIC: Appropriate mood and affect. Normal interaction. <Odilia Sullivan PA-C - Last Filed: 04/13/25 02:48> Course Vital Signs Vital signs: Vital Signs Temperature 98.3 F 04/12/25 18:24 Pulse Rate 90 04/12/25 18:24 Respiratory Rate 20 04/12/25 18:24 Blood Pressure 120/72 04/12/25 18:24 Pulse Oximetry 100 04/12/25 18:24 Oxygen Delivery Room Air 04/12/25 18:24 Temperature 99.4 F 04/12/25 20:25 Pulse Rate 78 04/12/25 23:59 Respiratory Rate 16 04/12/25 23:59 Blood Pressure 124/86 04/12/25 23:59 Pulse Oximetry 98 04/12/25 23:59 Oxygen Delivery Room Air 04/12/25 18:24 <Felicia Woody PA-C - Last Filed: 04/13/25 11:04> Vital Signs Temperature 98.3 F 04/12/25 18:24 Pulse Rate 90 04/12/25 18:24 Respiratory Rate 20 04/12/25 18:24 Blood Pressure 120/72 04/12/25 18:24 Pulse Oximetry 100 04/12/25 18:24 Oxygen Delivery Room Air 04/12/25 18:24 Temperature 99.4 F 04/12/25 20:25 Pulse Rate 78 04/12/25 23:59 Respiratory Rate 16 04/12/25 23:59 Blood Pressure 124/86 04/12/25 23:59 Pulse Oximetry 98 04/12/25 23:59 Oxygen Delivery Room Air 04/12/25 18:24 <LELE Michaels Last Filed: 04/13/25 02:48> MDM - Nausea/Vomiting/Diarrhea MDM Narrative Medical decision making narrative: Patient presented to ED with 1 week history of abdominal pain/cramping, diarrhea, worsening today and associated with nausea/vomiting today. Does note that she has been under increased stress with work. Vital signs are stable upon arrival. Patient is in no acute distress. Cbc with blood cell count of 10.0. H&H is stable. CMP is unremarkable. Stable electrolytes. Stable kidney function. Normal LFTs and lipase. UA with evidence of dehydration, no significant signs of infection. Urine is negative. CT scan of abdomen/pelvis was obtained and without evidence of obstruction, infection. Did show prominent pancreatic tail, recommended correlation with pancreatic labs. Lipase is within normal range. Patient without any significant epigastric tenderness, no his previous history of pancreatitis. CT also showed varicose veins around spleen. Made patient aware of this. Advised may need follow-up as outpatient. Discussed otherwise reassuring workup. Patient is feeling better with fluids. She is able to tolerate p.o. intake. Discussed possibility of stress causing symptoms versus gastroenteritis. Feel she is safe for discharge home to continue fluid intake. Will prescribe Zofran for home, advised she can continue Bentyl as needed. Recommended follow-up with PCP for further evaluation. Given return precautions. Discharged in stable condition <LELE Michaels Last Filed: 04/13/25 02:48> Medical Records Attestation: I reviewed the patient's medical records. <Odilia Sullivan PA-C - Last Filed: 04/13/25 02:48> Lab Data Attestation: I reviewed the patient's lab results. <Odilia Sullivan PA-C - Last Filed: 04/13/25 02:48> Result diagrams: 04/12/25 18:08 04/12/25 18:08 <Felicia Woody PA-C - Last Filed: 04/13/25 11:04> Labs: Lab Results 04/12/25 04/12/25 Range/Units 18:08 18:09 WBC 10.0 (4.5-10.0) K/mm3 RBC 3.94 L (4.2-5.4) M/mm3 Hgb 12.5 (12.0-15.0) g/dL Hct 37.8 (37.0-47.0) % MCV 95.9 (80-100) fl MCH 31.7 (26-34) pg MCHC 33.1 (32-36) g/dl RDW 12.0 (11.5-14.5) % Plt Count 404 H D (150-375) k/mm3 MPV 9.5 (7.4-10.4) fl Immature Gran % (Auto) 0.3 (0-0.5) % Neut % (Auto) 87.6 H (45.5-73.1) % Lymph % (Auto) 7.5 L (18.3-44.2) % Sheridan % (Auto) 4.3 (2.6-8.5) % Eos % (Auto) 0.0 (0-4.4) % Baso % (Auto) 0.3 (0.2-1.2) % Lymph # (Auto) 0.75 L (0.9-3.2) K/mm3 Sheridan # (Auto) 0.4 (0.1-0.6) K/mm3 Eos # (Auto) 0.0 (0-0.3) K/mm3 Baso # (Auto) 0.0 (0.0-0.1) K/mm3 Abs Immat Gran (auto) 0.03 (0.00-0.031) K/mm3 Absolute Neuts (auto) 8.8 H (1.3-6.7) K/mm3 Absolute Nucleated RBC 0.000 (0.0-0.012) K/mm3 Nucleated RBC % 0.0 (0.0-0.2) % Sodium 139 (137-145) mmol/L Potassium 3.7 (3.4-5.0) mmol/L Chloride 102 (98-107) mmol/L Carbon Dioxide 30 (22-30) mmol/L Anion Gap 7 (4-12) mmol/L BUN 11 (7-17) mg/dL Creatinine 0.95 (0.7-1.0) mg/dL Estim Creat Clear Calc 66 ml/min Estimated GFR > 60 (59 - ) Glucose 96 (65-110) mg/dL Calcium 9.8 (8.4-10.2) mg/dL Total Bilirubin 0.6 (0.2-1.3) mg/dL AST 28 (14-36) U/L ALT 21 (6-35) U/L Alkaline Phosphatase 40 (38-126) U/L Total Protein 8.0 (6.3-8.2) g/dL Albumin 4.7 (3.5-5.1) g/dL Lipase 170 (23-300) U/L Urine Color Yellow (Yellow) Urine Appearance Turbid H (Clear) Urine pH >=9.0 H (5.0-9.0) Ur Specific [place] 1.021 (1.001-1.035) Urine Protein Trace (Negative) mg/dL Urine Glucose (UA) Negative (Negative) mg/dL Urine Ketones 1+ H (Negative) mg/dL Ur Blood (Man) Negative (Negative) Urine Nitrate Negative (Negative) Urine Bilirubin Negative (Negative) Urine Urobilinogen 1.0 (<2.0) mg/dL Add Ur Microanalysis Reviewed Leukocyte Esterase Rfl Negative (Negative) ZANE/UL Urine RBC 6-10 H (0-2) /hpf Urine WBC 6-10 H (0-3) /hpf Ur Squamous Epith Cells None seen (Few) /hpf Urine Bacteria None seen /hpf Urine Casts 0-2 POC Urine HCG, Qual Negative (Negative) <Felicia Woody PA-C - Last Filed: 04/13/25 11:04> Lab Results 04/12/25 04/12/25 Range/Units 18:08 18:09 WBC 10.0 (4.5-10.0) K/mm3 RBC 3.94 L (4.2-5.4) M/mm3 Hgb 12.5 (12.0-15.0) g/dL Hct 37.8 (37.0-47.0) % MCV 95.9 (80-100) fl MCH 31.7 (26-34) pg MCHC 33.1 (32-36) g/dl RDW 12.0 (11.5-14.5) % Plt Count 404 H D (150-375) k/mm3 MPV 9.5 (7.4-10.4) fl Immature Gran % (Auto) 0.3 (0-0.5) % Neut % (Auto) 87.6 H (45.5-73.1) % Lymph % (Auto) 7.5 L (18.3-44.2) % Sheridan % (Auto) 4.3 (2.6-8.5) % Eos % (Auto) 0.0 (0-4.4) % Baso % (Auto) 0.3 (0.2-1.2) % Lymph # (Auto) 0.75 L (0.9-3.2) K/mm3 Sheridan # (Auto) 0.4 (0.1-0.6) K/mm3 Eos # (Auto) 0.0 (0-0.3) K/mm3 Baso # (Auto) 0.0 (0.0-0.1) K/mm3 Abs Immat Gran (auto) 0.03 (0.00-0.031) K/mm3 Absolute Neuts (auto) 8.8 H (1.3-6.7) K/mm3 Absolute Nucleated RBC 0.000 (0.0-0.012) K/mm3 Nucleated RBC % 0.0 (0.0-0.2) % Sodium 139 (137-145) mmol/L Potassium 3.7 (3.4-5.0) mmol/L Chloride 102 (98-107) mmol/L Carbon Dioxide 30 (22-30) mmol/L Anion Gap 7 (4-12) mmol/L BUN 11 (7-17) mg/dL Creatinine 0.95 (0.7-1.0) mg/dL Estim Creat Clear Calc 66 ml/min Estimated GFR > 60 (59 - ) Glucose 96 (65-110) mg/dL Calcium 9.8 (8.4-10.2) mg/dL Total Bilirubin 0.6 (0.2-1.3) mg/dL AST 28 (14-36) U/L ALT 21 (6-35) U/L Alkaline Phosphatase 40 (38-126) U/L Total Protein 8.0 (6.3-8.2) g/dL Albumin 4.7 (3.5-5.1) g/dL Lipase 170 (23-300) U/L Urine Color Yellow (Yellow) Urine Appearance Turbid H (Clear) Urine pH >=9.0 H (5.0-9.0) Ur Specific [place] 1.021 (1.001-1.035) Urine Protein Trace (Negative) mg/dL Urine Glucose (UA) Negative (Negative) mg/dL Urine Ketones 1+ H (Negative) mg/dL Ur Blood (Man) Negative (Negative) Urine Nitrate Negative (Negative) Urine Bilirubin Negative (Negative) Urine Urobilinogen 1.0 (<2.0) mg/dL Add Ur Microanalysis Reviewed Leukocyte Esterase Rfl Negative (Negative) ZANE/UL Urine RBC 6-10 H (0-2) /hpf Urine WBC 6-10 H (0-3) /hpf Ur Squamous Epith Cells None seen (Few) /hpf Urine Bacteria None seen /hpf Urine Casts 0-2 POC Urine HCG, Qual Negative (Negative) <LELE Michaels Last Filed: 04/13/25 02:48> Imaging Data Attestation: I personally reviewed and interpreted this imaging study as follows: < LELE Michaels Last Filed: 04/13/25 02:48> Radiologist's impression: ITS Impressions Abdomen/Pelvis CT 04/12/25 23:12 IMPRESSION: 1. No evidence of appendicitis, diverticulitis or intestinal obstruction. 2. Prominent pancreatic tail which may indicate pancreatitis. Clinical correlation and further evaluation advised. 3. Prominent varicose veins around the spleen extending to the left renal vein which raises the possibility of portal hypertension.. <LELE Michaels Last Filed: 04/13/25 02:48> Critical Care Time Critical Care Time Critical Care Time: No <Felicia Woody PA-C - Last Filed: 04/13/25 11:04> Discharge Plan Discharge Clinical Impression: Diffuse abdominal pain, Stress at work Nausea and vomiting Qualifiers: Vomiting type: unspecified Qualified Code(s): R11.2 - Nausea with vomiting, unspecified <LELE Campbell Last Filed: 04/13/25 11:04> Patient Disposition: Home <LELE Campbell Last Filed: 04/13/25 11:04> Condition: Stable <LELE Campbell Last Filed: 04/13/25 11:04> Instructions: Antibiotic Form, Dehydration (ED), Clear Liquid Diet (ED), Gastroenteritis (ED), Acute Nausea and Vomiting (ED) <LELE Campbell Last Filed: 04/13/25 11:04> Additional Instructions: Utilize zofran as needed for further nausea. Continue dicyclomine, Tylenol as needed for abdominal discomfort. Increase fluid intake. Recommend electrolyte rich fluids, gatorade, pedialyte, body armour. Recommend clear liquids or bland diet until symptoms improve, such as bananas, rice, applesauce, toast, or crackers. Follow up with your primary care doctor for further evaluation. Return to the ED if you experience worsening or severe symptoms, unable to keep down food or drink, severe pain, fevers, rectal bleeding, vomiting blood, or any other symptoms of concern. <Felicia Woody PA-C - Last Filed: 04/13/25 11:04> Patient Language: Mozambican <LELE Campbell Last Filed: 04/13/25 11:04> Prescriptions: New ondansetron 4 mg tablet,disintegrating 4 mg PO Q8H PRN (Reason: nausea and vomiting) Qty: 15 0RF No Action metronidazole 500 mg tablet 500 mg PO Q12H Qty: 20 0RF doxycycline hyclate 100 mg capsule 100 mg PO Q12H Qty: 20 0RF valacyclovir 500 mg tablet 500 mg PO DAILY Qty: 90 3RF Rx Instructions: for outbreaks take 500mg BID x 3 days. norethindrone acetate 5 mg tablet 5 mg PO DAILY Qty: 90 1RF <Felicia Woody PA-C - Last Filed: 04/13/25 11:04> Follow-up/Referrals: Maureen Vee MD [Physician] - <Felicia Woody PA-C - Last Filed: 04/13/25 11:04> Time of Disposition: 23:47 <Felicia Woody PA-C - Last Filed: 04/13/25 11:04> 23:47 <Odilia Sullivan PA-C - Last Filed: 04/13/25 02:48>
[2025-04-12 18:10] LABS: BEDSIDEPREGUCG Negative (Negative)
[2025-04-12 18:15] LABS: Basophils Percent Auto 0.3 % (0.2-1.2); Hematocrit 37.8 % (37.0-47.0); Hemoglobin 12.5 g/dL (12.0-15.0); Immature Granulocyte Absolute 0.03 K/mm3 (0.00-0.031); Immature Granulocyte Percent A 0.3 % (0-0.5); Lymphocytes Absolute Auto 0.75 K/mm3 (0.9-3.2); Lymphocytes Percent Auto 7.5 % (18.3-44.2); Mean Corpuscular HGB Conc 33.1 g/dl (32-36); Mean Corpuscular Hemoglobin 31.7 pg (26-34); Mean Corpuscular Volume 95.9 fl (80-100); Mean Platelet Volume 9.5 fl (7.4-10.4); Monocytes Absolute Auto 0.4 K/mm3 (0.1-0.6); Monocytes Percent Auto 4.3 % (2.6-8.5); Neutrophils Absolute Auto 8.8 K/mm3 (1.3-6.7); Neutrophils Percent Auto 87.6 % (45.5-73.1); Platelet Count Result 404 k/mm3 (150-375); Red Blood Count 3.94 M/mm3 (4.2-5.4)
[2025-04-12 18:24] VITALS: BP 120/72; PULSE 90; RESP 20; TEMP 36.8; O2SAT 100
[2025-04-12 18:24] LABS: Add Urine Microscopic? YES; Appearance Urine Turbid (Clear); Bacteria Urine None Seen /hpf; Bilirubin Urine Negative (Negative); Blood Urine Negative (Negative); Color Urine Yellow (Yellow); Glucose Urine UA Negative (Negative); Ketones Urine 1+ mg/dL (Negative); Leukocyte Esterase Ur Negative LEU/UL (Negative); Need Manual Microscopic Reviewed; Nitrate Urine Negative (Negative); Non Pathogenic Casts 0-2; Protein Urine Trace mg/dL (Negative); Specific Grav Ur 1.021 (1.001-1.035); Squamous Epithelial Cell Urine None Seen /hpf (Few); pH Urine >=9.0 (5.0-9.0)
[2025-04-12 18:26] LABS: Alanine Aminotransferase 21 U/L (6-35); Albumin Level 4.7 g/dL (3.5-5.1); Alkaline Phosphatase 40 U/L (38-126); Anion Gap 7 mmol/L (4-12); Aspartate Amino Transferase 28 U/L (14-36); Bilirubin,Total 0.6 mg/dL (0.2-1.3); Blood Urea Nitrogen 11 mg/dL (7-17); Calcium 9.8 mg/dL (8.4-10.2); Carbon Dioxide 30 mmol/L (22-30); Chloride 102 mmol/L (98-107); Estimated CRCL calculation 66 ml/min; Estimated Glomerular Filt Rate > 60; Glucose 96 mg/dL (65-110); Lipase 170 U/L (23-300); Potassium 3.7 mmol/L (3.4-5.0); Sodium 139 mmol/L (137-145)
[2025-04-12 20:25] VITALS: BP 115/69; PULSE 80; RESP 17; TEMP 37.4; O2SAT 97
--- NOTE | 2025-04-12 21:39 | PC.NURSE ---
Pt presents to ED c/o abdomimnal pain, n/v and diarrhea onset 1300. Per pt has been having a stressful day at work, and has history of ulcers. Pt placed on cardiac cath tech, and cont. pulse oximeter. VS WNL
--- OUTSIDE RECORDS SUMMARY | 2025-04-12 21:49 | XMS_ITS | Clinical Summary ---
Author Organization 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
[2025-04-12] MEDS: SODIUM CHLORIDE 0.9% IV 1,000 ML 999 ML IV CONT ×2 (22:28→22:30)
[2025-04-12] MEDS: ONDANSETRON INJ 4 MG/2 ML VIAL IV PUSH (22:28)
[2025-04-12] MEDS: FAMOTIDINE 20 MG/2 ML VIAL IV PUSH (22:29)
[2025-04-12 23:59] VITALS: BP 124/86; PULSE 78; RESP 16; O2SAT 98
== END 2025-04-13 00:01 | disposition home or self-care (01) ==
PROVIDERS: Physician Assistant; Emergency Provider Physician Assistant; PCP Internal Medicine
DX: R10.9 Unspecified abdominal pain (principal); R11.2 Nausea with vomiting, unspecified; F43.9 Reaction to severe stress, unspecified; J45.909 Unspecified asthma, uncomplicated; R93.89 Abnormal findings on diagnostic imaging of other specified body structures
CPT/HCPCS: 36415; 74177; 80053; 81001; 81025; 83690; 85025; 87086; 96361; 96374; 96375; 99284; J2405; J7030; Q9967

== ENCOUNTER 2025-05-08 12:12 | Outpatient (CLI) | payer OTHER, SELFPAY ==
--- NOTE | ~2025-05-08 | MM_ITS ---
EXAMINATION: MM scrn germaine implant BI w lary HISTORY: Screening mammogram TECHNIQUE: Craniocaudal and mediolateral oblique 3-D tomosynthesis images with implant displacement a nd synthetic 2-D images were generated. Craniocaudal and mediolateral oblique views of the breasts wi thout implant displacement were obtained using full field digital mammography. CAD analysis was submi tted and interpreted. COMPARISON: No prior mammogram is available for comparison at this institution. BREAST PARENCHYMAL COMPOSITION: The breasts are heterogeneously dense, which may obscure small masses . FINDINGS: There is no evidence of suspicious mass, calcification, or architectural distortion to sugg est malignancy in either breast. There has been no suspicious interval change. IMPRESSION: No mammographic evidence of malignancy. Recommend routine screening mammography in one year. BI-RADS Category 1: Negative Reviewed, dictated and finalized at [facility].
== END 2025-05-08 12:13 | disposition home or self-care (01) ==
PROVIDERS: PCP Internal Medicine; Visit Provider Internal Medicine
DX: Z12.31 Encounter for screening mammogram for malignant neoplasm of breast (principal)
CPT/HCPCS: 77063; 77067

== ENCOUNTER 2025-05-14 14:47 | Outpatient (CLI) | payer OTHER, SELFPAY ==
--- NOTE | ~2025-05-14 | US_ITS ---
US pelvic complete w TV Ordering provider: Akash Roldan MD History: . N94.89 - Other specified conditions associated with femal... . Comparison: None. Technique: Transabdominal and endovaginal ultrasound of the pelvis (Doppler ultrasound interrogation techniques used as needed for this exam.) FINDINGS: CERVIX: Normal. UTERUS: Measures 8.7x 6.1x 5.1 cm in length which is within normal limits and is anteverted. No myom etrial masses. ENDOMETRIUM: Normal in thickness measuring 11 mm. (Note: the premenopausal endometrium may measure up to 16 mm when in the secretory phase.) No endometrial masses, cysts or fluid. CUL DE SAC: Minimal free fluid. RIGHT OVARY: Normal in size measuring 2.1x 2.1x 1.9 centimeters. Normal echotexture. Doppler vascular flow present. LEFT OVARY: Normal in size measuring 3.2x 2.7x 2.3 centimeters. Normal echotexture. Doppler vascular flow present. A cyst is seen measuring 1.9 x 2.3 x 1.1 cm. ADNEXA: Normal. No mass. IMPRESSION: Left ovarian cyst. Otherwise, Otherwise, normal pelvic ultrasound. Reviewed, dictated and finalized at location A.
== END 2025-05-14 14:48 | disposition home or self-care (01) ==
PROVIDERS: PCP Obstetrics & Gynecology; Visit Provider Obstetrics & Gynecology
DX: N83.202 Unspecified ovarian cyst, left side (principal); N94.89 Other specified conditions associated with female genital organs and menstrual cycle
CPT/HCPCS: 76830; 76856

== ENCOUNTER 2025-05-23 05:43 | Day surgery (SDC) | payer OTHER, SELFPAY ==
[2025-05-10 09:27] VITALS: BMI 25.0
[2025-05-23] VITALS (8 sets, daily range): BP systolic 101–121; BP diastolic 59–82; PULSE 70–89; RESP 13–22; TEMP 36.3; O2SAT 95–100; BMI 25.6
--- OUTSIDE RECORDS SUMMARY | 2025-05-23 06:02 | XMS_ITS | Encounter Summary ---
Author Organization [facility] Address [address] [place] [address] Care Team Providers Care Literacy Education Professor Name Role Phone Paul Chau MD Primary Care Provider [phone] Encounter Details Date Type Department Care Team (Late st Contact Info) Description 08/23/2024 MyChart Message Enc [facility] - [place] [address] [place] [address] [address] [place] [address] [place] [address] [place] [address] [address] [place], [place] [id number] MRI Social History Tobacco Use Types Packs/Day Years Used Date Smoking Tobacco: Never Smokeless Tobacco: Never Comments:Counseled by Dr. 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 I have faxed records request to chiropractors that pt states she seen documented in this encounter Plan of Treatment Upcoming Encounters Date Type Department Care Team (Late st Contact Info) Description 06/13/2025 2:00 PM CDT Office Visit [facility] [place] [address] [address] [place] [address] Paul Chau MD [address] [place] [id number] documented as of this encounter Visit Diagnoses Not on filedocumented in this encounter Additional Health Concerns Assessment Noted Time PHQ-9 Depression Total Score: 1 05/24/20 24 1:26 PM CDT documented as of this encounter Care Teams Literacy Education Professor Relationship Specialty Start Date End Date Paul Chau MD [address] [place] [id number] PCP - General INTERNAL MEDICINE 04/19/23 documented as of this encounter
--- OUTSIDE RECORDS SUMMARY | 2025-05-23 06:02 | XMS_ITS | Referral Summary ---
Author Organization [facility] Address [address] [place] [address] Care Team Providers Care Courtesy Van Driver Name Role Phone Jordan Vick MD Primary Care Provider + Encounters Date Type Department Care Team Description 04/27/2025 7:15 PM CDT Office Visit [facility] at [address] [address] Camilla Gary NP Acute otitis externa of right ear, unspecified type (Primary Dx) from Last 3 Months Allergies No known active allergies Medications ferrous sulfate (IRON, FERROUS SULFATE,) 325 mg (65 mg of elemental iron) tablet take 1 tablet by oral route 1 times every day 30 1 7 Active ibuprofen (ADVIL,MOTRIN) 600 mg tablet Take 1 tablet (600 mg total) by mouth every 6 (six) hours as needed for pain 30 tablet 0 Active multivitamin tablet,chewable Take by mouth Active ascorbic acid (vitamin C) 100 mg tablet Take 100 mg by mouth daily Active cholecalciferol (VITAMIN D-3) 5,000 unit capsule Take 5,000 Units by mouth daily Active valACYclovir (VALTREX) 500 mg tablet Take 500 mg by mouth 2 (two) times a day Active busPIRone (BUSPAR) 5 mg tablet Take 1 tablet (5 mg total) by mouth 3 (three) times a day as needed 5 Active norethindrone (AYGESTIN) 5 mg tablet 5 Active ciprofloxacin-de xAMETHasone (CIPRODEX) otic suspensionIndica tions:Acute otitis externa of right ear, unspecified type Administer 4 drops into the right ear 2 (two) times a day for 7 days 7.5 mL 5 05/04/20 25 Active Problems No known active problems Social History Tobacco Use Types Packs/Day Years Used Date Smoking Tobacco: Never Smokeless Tobacco: Never Alcohol Use Standard Drinks/Week Comments Yes 0 (1 standard drink = 0.6 oz pur e alcohol) social Comments No Sex and Gender Information Value Date Recorded Sex Assigned at Not on file 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 Gender Identity Female 06/07/2020 9:02 AM CDT Sexual Orientation Straight 06/07/2020 9: 02 AM CDT Last Filed Vital Signs Vital Sign Reading Time Taken Comments Blood Pressure 123/74 04/27/2025 6:54 PM CDT Pulse 72 04/27/2025 6:54 PM CDT Temperature 36.8 C (98.2 F) 04/27/2025 6:54 PM CDT Respiratory Rate 20 04/27/2025 6:54 PM CDT Oxygen Saturation 100% 04/27/2025 6:54 PM CDT Inhaled Oxygen Concentration - - Weight 77.6 kg (171 lb) 06/07/2020 9:35 AM CDT Height 165.1 cm (5' 5) 06/07/2020 9:35 AM CDT Body Mass Index 28.46 06/07/2020 9:35 AM CDT Plan of Treatment Not on file Procedures Procedure Name Priority Date/Time Associated Diagnosis Comments HEP C AB W/RFL HCV Routine 09/11/2016 12 :54 PM CDT HEPATITIS B SURFACE ANTIGEN Routine 09/11/2016 12:54 PM CDT from Last 3 Months or Most Recently Relevant to Health Maintenance Results * HEP C AB W/RFL HCV (09/11/2016 12:54 PM CDT) SIGNAL TO CUT-OFF 0.02 <1.00 [facility] Comment: Test performed at [facility] [place] [id number] [place] [id number] Director: FAUSTINO ALAN DO,MPH Hep C Ab NON-REACT JAS NON-REACT JAS [facility] 09/11/2016 12:5 4 PM CDT Odilia Mabry MD LAB MICROBIOLOGY - GE NERAL ORDERABLES Final Result [facility] * Hepatitis B surface antigen (09/11/2016 12:54 PM CDT) HepBsAg NON-REACT JAS NON-REACT JAS [facility] Comment: Test performed at [facility] [address] [address] Director: FAUSTINO ALAN DO,MPH 09/11/2016 12:5 4 PM CDT Odilia Mabry MD LAB MICROBIOLOGY - GE NERAL ORDERABLES Final Result [facility] from Last 3 Months or Most Recently Relevant to Health Maintenance Insurance [facility]MO [facility] H[facility]/O Address: [facility] [id number] [place] [phone] [facility] H[facility] Care Teams Courtesy Van Driver Relationship Specialty Start Date End Date Jordan Vick MD [address] [place] [address] PCP - General 06/03/20
--- OUTSIDE RECORDS SUMMARY | 2025-05-23 06:03 | XMS_ITS | Clinical Summary ---
Author Organization [facility] Address [address] [place] [address] Care Team Providers Care Pneumatic Press Hand Name Role Phone Paul Chau MD Primary Care Provider [phone] Allergies Active Allergy Reactions Criticality Noted Date Comments Povidone Iodine Hives,Itching,Rash,Redness Low 04/15 Medications fexofenadine (JULIETA) 180 MG tablet Take 1 tablet (180 mg total) by mouth daily. Active triamcinolone acetonide (NASACORT) 55 MCG/ACT nasal inhaler 2 sprays by Each Nostril route daily. Active Multiple Vitamin (MULTIVITAMIN OR) Active levalbuterol (XOPENEX HFA) 45 MCG/ACT inhalerIndicat ions:Acute sinusitis, recurrence not specified, unspecified location Inhale 1 puff into the lungs every 8 (eight) hours as needed for Wheezing. 15 g 1 023 Active valACYclovir (VALTREX) 500 MG tabletIndicati ons:Cold sore Take 1 tablet (500 mg total) by mouth daily. 14 tablet 023 Active clobetasol (TEMOVATE) 0.05 % external solution APPLY TO SCALP EVERY DAY FOR 7 DAYS 024 Active ALPRAZolam (XANAX) 0.25 MG tabletIndicati ons:Panic attacks take 1 tablet by mouth nightly as needed for sleep 30 tablet 2 024 Active cyclobenzaprin e (FLEXERIL) 5 MG tabletIndicati ons:Chronic bilateral low back pain without sciatica Take 1 tablet (5 mg total) by mouth nightly as needed for Muscle Spasms. 90 tablet 09/24/2 024 Active ketorolac (TORADOL) 10 MG tabletIndicati ons:Chronic bilateral low back pain without sciatica TAKE 1 TABLET BY MOUTH EVERY 6 HOURS NEEDED FOR PAIN. 20 tablet 024 Active dicyclomine (BENTYL) 10 MG capsuleIndicat ions:Irritable bowel syndrome with diarrhea Take 1 capsule (10 mg total) by mouth 3 (three) times daily as needed. Use for abdominal cramping. 30 capsule 1 025 Active omeprazole (PRILOSEC) 40 MG capsuleIndicat ions:Gastroeso phageal reflux disease without esophagitis Take 1 capsule (40 mg total) by mouth daily. 90 capsule 025 Active busPIRone (BUSPAR) 5 MG tabletIndicati ons:Panic attacks,EVA (generalized anxiety disorder) TAKE 1 TABLET BY MOUTH 3 TIMES DAILY NEEDED. 270 tablet 025 Active clotrimazole (LOTRIMIN) 1 % external solutionIndica tions:Otitis externa, fungal, right ear Apply topically see administration instructions for 14 days. Apply liquid solution into right ear canal twice daily. Wait 3-5 minutes prior to standing. 29.57 mL 025 2024 Active busPIRone (BUSPAR) 5 MG tabletIndicati ons:Panic attacks,EVA (generalized anxiety disorder) Take 1 tablet (5 mg total) by mouth 3 (three) times daily as needed. 90 tablet 1 025 2024 Discontinued Active Problems Problem Noted Date Diagnosed Date Otitis externa, fungal, right ear 05/21/2025 Assessment & Plan (05/21/2025 11:58 AM CDT): Upon physical exam, patient's external auditory canal had features of fungal otitis externa with white appearing debris. I suspect she has fungal otitis externa. No perforation was visible on otoscopic exam. Offered debridement to patient however patient is in a hurry to get to next scheduled appointment. Patient is to use clotrimazole 1% solution in left ear twice daily for 14 days. Patient is counseled to use enough solution to fill up right ear canal and then lay on her side for at least 3-5 minutes after placing clotrimazole solution prior to getting up and ambulating. If fails to improve, will proceed as indicated and refer to ENT. Cervical cancer screening 02/25/2023 Overview (02/25/2023): 08/2018 - Normal; HPV negative 09/2021 - Normal 05/2022 - ASC-US, HPV negative Sees obgyn Family history of colon cancer in mother 023 Family history of colon cancer in father 023 Pain in finger of left hand 02/17/2023 BMI 31.0-31.9,adult 02/17/2023 Allergies 08/16/2006 Encounters Date Type Department Care Team Description 05/21/2025 11:00 AM CDT Office Visit [place] [id number] [facility] [address] [place] [address] Marcella Harley, Ear Problem (Pt states she has had right ear pain for a month. /She was on antibiotic ear drop for 2 weeks./Pt states it still is hurting,. /) 05/21/2025 Travel 05/09/2025 8:11 AM CDT - 05/09/2025 11:59 PM CDT Hospital Encounter [facility] Ultrasound [address] [place] [address] Iliana Luna, BIOCHEMICAL ENGINEER Discharge Disposition: Home or Self Care (Routine Discharge) 05/09/2025 Travel 05/08/2025 Scan [employer] HEALTH INFO SRVCS Scanned, [facility] Mammogram (SCAN) 05/08/2025 MyChart Message Enc [place] [address] [facility] [address] [place] [address] Paul Chau MD EHR Supplemental Form 05/07/2025 Scan [facility] HEALTH INFO SRVCS Scanned, [facility] 04/27/2025 10:00 AM CDT Allied Health/Nurse Visit [facility] [address] [facility] [address] [place] [address] Paul Chau MD Allied Health Visit (labs) 04/27/2025 - 04/27/2025 11:59 PM CDT Hospital Encounter [facility] [place] [address] Paul Chau MD Discharge Disposition: Home or Self Care (Routine Discharge) 04/27/2025 Results Follow-Up [facility] [address] [facility] [address] [place] [address] Iliana Luna, VIKTOR CBC W/DIFF AUTOMATED, LIPASE, COMPREHENSIVE METABOLIC PANEL, US ABD LIMITED 04/26/2025 4:20 PM CDT Office Visit [facility] [address] [facility] [address] [place] [address] Iliana Luna NP Abdominal Pain 04/26/2025 Travel 04/18/2025 Telephone [facility] [address] [facility] [address] [place] [address] Paul Chau MD Medication 04/13/2025 Telephone [facility] [address] [facility] [address] [place] [address] Paul Chau MD Information 04/13/2025 MyChart Message Enc [facility] [address] [facility] [address] [place] [address] Paul Chau MD EHR Supplement additional form needed 04/12/2025 Scan [facility] HEALTH INFO SRVCS Scanned, Doc [facility] Group CT (SCAN) 04/10/2025 3:20 PM CDT Office Visit [facility] [address] [facility] [address] [place] [address] Palu Chau MD Anxiety (Pt states she had a harrassment issue at work. Pt stated she has been having cramps and going to the restroom. Pt stated she is getting stomach pains from stress wants to know if she needs to go back on IBS ) 04/10/2025 Telephone [facility] - [address] [place] [address] Paul Chau MD Information 04/10/2025 Travel from Last 3 Months Immunizations Immunization Administration Dates Next Due Influenza Adult (Generic) 08/24/2023 PFIZER COVID-19 (ORIGINAL FO RMULATION, PURPLE CAP) mRNA, LNP-S, PF, 30 MCG/0.3 ML DOSE 08/12/2021,07/22/2021 PFIZER COVID-19 BIVALENT (12 +) mRNA, LNP-S, PF, 30 MCG/0.3 ML DOSE 07/28/2022 Tdap (Generic) 03/24/2022 Family History Medical History Relation Comments Asthma Daughter 1 Asthma Daughter 2 Asthma Father Colon Cancer Father 40s Colon Cancer Maternal Grandmother Arthritis Mother Colon Cancer Mother 40s Fibromyalgia Mother Colon Cancer Paternal Grandfather Relation Status Comments Daughter 1 Daughter 2 Father Maternal Grandmother Mother Paternal Grandfather Social History Tobacco Use Types Packs/Day Years Used Date Smoking Tobacco: Never Smokeless Tobacco: Never Tobacco Cessation:Counseling Given: No Comments:Counseled by Dr. 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 Gender Identity Female 05/21/2025 11:03 AM CDT Sexual Orientation Not on file Last Filed Vital Signs Vital Sign Reading Time Taken Comments Blood Pressure 110/77 05/21/2025 11:04 AM CDT Pulse 70 05/21/2025 11:04 AM CDT Temperature 36.1 C (97 F) 05/21/2025 11:04 AM CDT Respiratory Rate 16 05/21/2025 11:04 AM CDT Oxygen Saturation 100% 05/21/2025 11:04 AM CDT Inhaled Oxygen Concentration - - Weight 70.8 kg (156 lb) 05/21/2025 11:04 AM CDT Height 167.6 cm (5' 6) 05/21/2025 11:04 AM CDT Body Mass Index 25.18 05/21/2025 11:04 AM CDT Plan of Treatment Upcoming Encounters Date Type Department Care Team (Late st Contact Info) Description 06/13/2025 2:00 PM CDT Office Visit [facility] - [address] [place] [address] Paul Chau MD [address] [place] [address] Health Maintenance Due Date Last Done Comments Cervical Cancer Screening Pa p Smear (Age 30 to 64) Every 3 Years 1985 Hepatitis B Vaccines (1 of 3 - 19+ 3-dose series) 2004 COVID-19 Vaccine (2023-2 5 season) 2024 07/28/2022, 08/12/2021, 07/22/2021 Annual Physical 05/24/2025 05/24/2024, 05/21/2023 Cervical Cancer Screening Pa p with HPV Testing (Age 30 to 64) Every 5 Years 05/21/2027 05/21/2022 Cervical Cancer Screening wi th HPV 05/21/2027 DTaP, Tdap and Td Vaccines ( 2 - Td or Tdap) 03/24/2032 03/24/2022 Hepatitis C Completed 05/24/2024, 05/21/2023 PHQ-2 (Physician [place]) Completed 04/10/2025 HPV Vaccines Aged Out No longer eligi ble based on patient's age to complete this topic Meningococcal B Vaccine Aged Out No l onger eligible based on patient's age to complete this topic Meningococcal Vaccine Aged Out No david jesus eligible based on patient's age to complete this topic Pneumococcal Vaccine: Pediatrics (0 to 5 Years) and At-Risk Patients (6 to 49 Years) Aged Out No longer eligible b ased on patient's age to complete this topic RSV Immunizations Under 20 Months Aged Out No longer eligible b ased on patient's age to complete this topic Procedures Procedure Name Priority Date/Time Associated Diagnosis Comments US ABD LIMITED Routine 05/09/2025 8:39 AM CDT History of pancreatitis MAMMOGRAM GENERIC (SCAN ORDER) 05/08/2025 MAMMOGRAM GENERIC (SCAN ORDER) 05/08/2025 COLLECTION VENOUS BLOOD VENIPUNCTURE Routine 04/27/2025 10:20 AM CDT History of pancreatitis COMPREHENSIVE METABOLIC PANEL Routine 04/27/2025 10:08 AM CDT History of pancreatitis AMYLASE Routine 04/27/2025 10:08 AM CDT History of pancreatitis LIPASE Routine 04/27/2025 10:08 AM CDT History of pancreatitis CBC W/DIFF AUTOMATED Routine 04/27/2025 10:08 AM CDT History of pancreatitis CT GENERIC 04/12/2025 HEPATITIS C ANTIBODY Routine 05/24/2024 1:33 PM CDT Annual physical exam General medical exam OUTSIDE CYTOPATH CERV/VAG INTERPRET (PAP) 05/21/2022 from Last 3 Months or Most Recently Relevant to Health Maintenance Results * US ABD LIMITED (05/09/2025 8:39 AM CDT) Anatomical Region Laterality Modality Abdomen Ultrasound 05/14/2025 6:50 AM CDT Impressions 05/14/2025 6:55 AM CDT IMPRESSION: 1. Gallbladder with mild sludge. No gross calculi. 2. Partially visualized pancreas without gross abnormality. 3. Grossly normal echogenicity to the liver without focal mass. No adjacent ascites. Referred By: ILIANA LUNA Interpreted By: Adrián Escalante MD, 05/14/2025 6:50 AM Narrative 05/14/2025 6:55 AM CDT [facility] [address] [place] [address] IMAGING STUDIES: COMPLETE ABDOMINAL ULTRASOUND . ALSO ULTRASOUND EVALUATION OF THE SPLEEN. DATE: 05/09/2025 8:14 AM COMPARISON STUDIES: No previous exams available. Correlation with outside CT abdomen of 04/12/2025 CLINICAL HISTORY: Abnormal CT. Possible portal hypertension. History of pancreatitis.. FINDINGS: Gallbladder with mild sludge. No shadowing calculi. No gallbladder wall thickening or adjacent fluid. Grossly normal echogenicity to the liver without focal mass. .Hepatic and portal veins are patent.. Common bile duct measures.3.4 mm.. Right kidney measures9.7 x 3.5 x 5.9 cm.. No focal mass or hydronephrosis.. Left kidney measures 9.3 x 5.3 x 5.1 cm. Spleen measures 7.9 x 4.3 x 4.4 cm Partially visualized pancreas without gross abnormality. Procedure Note Adrián Escalante MD - 05/14/2025 [facility] [address] [place] [address] IMAGING STUDIES: COMPLETE ABDOMINAL ULTRASOUND . ALSO ULTRASOUNDEVALUATION OF THE SPLEEN. DATE: 05/09/2025 8:14 AM COMPARISON STUDIES: No previous exams available. Correlation with outsideCT abdomen of 04/12/2025 CLINICAL HISTORY: Abnormal CT. Possible portal hypertension. History ofpancreatitis.. FINDINGS: Gallbladder with mild sludge. No shadowing calculi. No gallbladder wallthickening or adjacent fluid. Grossly normal echogenicity to the liver without focal mass. .Hepatic and portal veins are patent.. Common bile duct measures.3.4mm.. Right kidney measures9.7 x 3.5 x 5.9 cm.. No focal mass orhydronephrosis.. Left kidney measures 9.3 x 5.3 x 5.1 cm. Spleen measures 7.9 x 4.3 x 4.4 cm Partially visualized pancreas without gross abnormality. IMPRESSION: 1. Gallbladder with mild sludge. No gross calculi. 2. Partially visualized pancreas without gross abnormality. 3. Grossly normal echogenicity to the liver without focal mass. Noadjacent ascites. Referred By: ILIANA LUNA Interpreted By: Adrián Escalante MD, 05/14/2025 6:50 AM us Iliana Luna BIOCHEMICAL ENGINEER ULTRASOUND Final Resul t * MAMMOGRAM GENERIC (SCAN ORDER) (05/08/2025) Only the most recent of2 resultswithin the time period is included. Anatomical Region Laterality Modality Other 05/08/2025 us [facility] Scanned SCANNING Final Resu lt * (ABNORMAL) COMPREHENSIVE METABOLIC PANEL (04/27/2025 10:08 AM CDT) SODIUM S/P/B 144 136 - 145 MMOL/L 04/27/2025 3:01 PM CDT [facility] POTASSIUM S/P/B 4.3 3.5 - 5.1 MMOL/L 04/27/2025 3:01 PM CDT [facility] CHLORIDE S/P/B 106 98 - 107 MMOL/L 04/27/2025 3:01 PM T [facility] CO2 33.5(H) 21 - 32 MMOL/L 04/27/2025 3:01 PM T [facility] GLUCOSE 72 70 - 99 MG/DL 04/27/2025 3:01 PM CDT [facility] BUN 15 7 - 18 MG/DL 04/27/2025 3:01 PM CDT [facility] CREATININE S/P/B 0.98 0.55 - 1.02 MG/DL 04/27/2025 3:01 PM T [facility] CALCIUM S/P/B 9.6 8.4 - 10.5 MG/DL 04/27/2025 3:01 PM CDT [facility] BILIRUBIN TOTAL S/P/B 1.0 0.2 - 1.0 MG/DL 04/27/2025 3:01 PM CDT [facility] ALKALINE PHOSPHATASE S/P/B 40 37 - 98 U/L 04/27/2025 3:01 PM CDT [facility] AST 10(L) 15 - 37 U/L 04/27/2025 3:01 PM CDT [facility] ALT 18 14 - 59 U/L 04/27/2025 3:01 PM CDT [facility] TOTAL PROTEIN S/P/B 7.0 6.4 - 8.2 G/DL 04/27/2025 3:01 PM T [facility] ALBUMIN S/P/B 4.1 3.4 - 5.0 G/DL 04/27/2025 3:01 PM T [facility] ANION GAP 4.5(L) 5 - 15 MMOL/L 04/27/2025 3:01 PM CDT [facility] Comment:REFERENCE RANGE NOT ESTABLISHED OSMOLALITY (CALC) 297 MOSM/KG 025 3:01 PM T [facility] Comment:REFERENCE RANGE NOT ESTABLISHED GFR ESTIMATE 75(L) >90 ML/MIN/1. 73 M2 04/27/2025 3:01 PM T [facility] GFR NOTES GFR REFERENCE S: 04/27/2025 3:01 PM T [facility] Comment: THE ESTIMATED GFR IS CALCULATED USING THE 2020 CKD-EPI EQUATION. THE FOLLOWING CATEGORIES FOR GRADING RENAL FUNCTION ARE RECOMMENDED BY THE INTERNATIONAL SOCIETY OF NEPHROLOGY (KDIGO 2012 CLINICAL PRACTICE GUIDELINE). G1,NORMAL OR HIGH: >89 ml/min/1.73 m2 G2,MILDLY DECREASED: 60-89 ml/min/1.73 m2 G3A,MILDLY TO MODERATELY DECREASED: 45-59 ml/min/1.73 m2 G3B,MODERATELY TO SEVERELY DECREASED: 30-44 ml/min/1.73 m2 G4,SEVERELY DECREASED: 15-29 ml/min/1.73 m2 G5,KIDNEY FAILURE: <15 ml/min/1.73 m2 04/27/2025 10:0 8 AM CDT us Iliana Luna NP LABORATORY Final Resul t [facility] [address] [place] [address], * (ABNORMAL) CBC W/DIFF AUTOMATED (04/27/2025 10:08 AM CDT) [facility] WBC 3.92(L) 4.00 - 10.80 x10'3/uL 04/27/2025 2:21 PM CDT [facility] RBC 3.94(L) 4.10 - 5.40 x10'6/uL 04/27/2025 2:21 PM CDT [facility] HGB 12.6 12.0 - 16.0 G/DL 04/27/2025 2:21 PM CDT [facility] HCT 38.2 36.0 - 47.0 % 04/27/2025 2:21 PM CDT [facility] MCV 97.0 78.0 - 100.0 FL 04/27/2025 2:21 PM T [facility] MCH 32.0(H) 27.0 - 31.0 PG 04/27/2025 2:21 PM CDT [facility] MCHC 33.0 33.0 - 36.0 G/DL 04/27/2025 2:21 PM CDT [facility] RDW 11.9 11.5 - 14.5 % 04/27/2025 2:21 PM CDT [facility] PLT 352(H) 150 - 350 x10'3/uL 04/27/2025 2:21 PM CDT [facility] MPV 10.2 7.4 - 10.4 FL 04/27/2025 2:21 PM CDT [facility] DIFFERENTIAL TYPE AUTOMATED DIFFERENTIAL 04/27/2025 2:21 PM CDT [facility] NEUTROPHILS % 46.4 % 04/27/2025 2:21 PM CDT [facility] LYMPHOCYTES % 42.6 % 04/27/2025 2:21 PM CDT [facility] MONOCYTES % 7.9 % 04/27/2025 2:21 PM CDT [facility] EOSINOPHILS % 1.5 % 04/27/2025 2:21 PM CDT [facility] BASOPHILS % 1.3 % 04/27/2025 2:21 PM CDT [facility] IMMATURE GRANS % 0.3 % 04/27/2025 2:21 PM CDT [facility] ABS. NEUTROPHILS 1.82 1.60 - 8.30 x10'3/uL 04/27/2025 2:21 PM CDT [facility] ABS. LYMPHOCYTES 1.67 0.80 - 4.70 x10'3/uL 04/27/2025 2:21 PM CDT [facility] ABS. MONOCYTES 0.31 0.00 - 1.50 x10'3/uL 04/27/2025 2:21 PM CDT [facility] ABS. EOSINOPHILS 0.06 0.00 - 0.40 x10'3/uL 04/27/2025 2:21 PM CDT [facility] ABS. BASOPHILS 0.05 0.00 - 0.20 x10'3/uL 04/27/2025 2:21 PM CDT [facility] ABS. IMMATURE GRANULOCYTES 0.01 0.00 - 0.03 x10'3/uL 04/27/2025 2:21 PM CDT [facility] 04/27/2025 10:0 8 AM CDT us Iliana Luna NP LABORATORY Final Resul t [facility] [address] [place] [address], [place] [phone] * AMYLASE (04/27/2025 10:08 AM CDT) AMYLASE S/P/B 98 25 - 115 UNITS/L 04/27/2025 6:03 PM CDT [facility] 04/27/2025 10:0 8 AM CDT Iliana Luna NP LABORATORY Final Resul t Performing Organization Address [facility] Co de Phone Number [facility] [address] [place] [address], [place] [phone] * (ABNORMAL) LIPASE (04/27/2025 10:08 AM CDT) LIPASE 84(H) 16 - 77 UNITS/L 04/27/2025 2:27 PM CDT [facility] Comment:NEW REFERENCE RANGE 04/27/2025 10:0 8 AM CDT Iliana Luna NP LABORATORY Final Resul t Performing Organization Address [facility] de Phone Number [facility] [address] [place] [address], [place] [phone] * CT GENERIC (04/12/2025) Anatomical Region Laterality Modality Other 04/12/2025 [facility] Scanned SCANNING Final Resu lt * HEPATITIS C ANTIBODY (05/24/2024 1:33 PM CDT) HEPATITIS C AB NON-REACTI VE NON-REACT JAS 05/24/2024 10:00 PM CDT [facility] Comment: ANTIBODIES TO HCV NOT DETECTED. DOES NOT EXCLUDE THE POSSIBILITY OF EXPOSURE TO HCV. 05/24/2024 1:33 PM CDT Paul Chau MD LABORATORY Final Result Performing Organization Address [facility] Co de Phone Number [facility] [address] [place] [address], [place] [phone] * PAP SMEAR WITH HPV (05/21/2022) 05/21/2022 us [facility] Scanned SCANNING Final Resu lt from Last 3 Months or Most Recently Relevant to Health Maintenance Insurance [employer] Care Teams Pneumatic Press Hand Relationship Specialty Start Date End Date Paul Chau MD [address] [place] [address] PCP - General INTERNAL MEDICINE 04/19/23
--- OUTSIDE RECORDS SUMMARY | 2025-05-23 06:03 | XMS_ITS | Encounter Summary ---
Author Organization [facility] Address [address] [place] [address] Care Team Providers Care Dry Room Attendant Name Role Phone Paul Chau MD Primary Care Provider [phone] Encounter Details Date Type Department Care Team (Latest Contact Info) Description 10/15/2023 Authyt Message Enc [address] [phone] Paul Chau MD [facility] [address] [phone] Follow-up appointment for mood medications Social History Tobacco Use Types Packs/Day Years Used Date Smoking Tobacco: Never Smokeless Tobacco: Never Comments:Counseled by Dr. 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 Gender Identity Female 05/21/2025 11:03 AM CDT Sexual Orientation Not on file documented as of this encounter Plan of Treatment Upcoming Encounters Date Type Department Care Team (Late st Contact Info) Description 06/13/2025 2:00 PM CDT [facility] [phone] Paul Chau MD [facility] [address] [place] [address] documented as of this encounter Visit Diagnoses Not on filedocumented in this encounter Additional Health Concerns Assessment Noted Time PHQ-9 Depression Total Score: 4 08/04/20 23 12:14 PM CDT documented as of this encounter Care Teams Dry Room Attendant Relationship Specialty Start Date End Date Paul Chau MD [address] [facility] [address] [place] [address] PCP - General INTERNAL MEDICINE 04/19/23 documented as of this encounter
--- OUTSIDE RECORDS SUMMARY | 2025-05-23 06:03 | XMS_ITS | Encounter Summary ---
Author Organization [facility] Address [facility] [place] [address] Care Team Providers Care Trading Analyst Name Role Phone Paul Chau MD Primary Care Provider Encounter Details Date Type Department Care Team (Latest Contact Info) Description 05/07/2023 HTG Molecular Diagnosticshart Message Enc [facility] Mult[facility]pecialty [facility] - [place] [address] [facility] [address] [place] [address] Paul Chau MD [address] [facility] [address] [place], [place] [phone] Covid vaccine info Social History Tobacco Use Types Packs/Day Years Used Date Smoking Tobacco: Never Smokeless Tobacco: Never Comments:Counseled by Dr. Mcgarry ate Alcohol Use Standard Drinks/Week Comments Yes 3.3 (1 standard drink = 0.6 oz p ure alcohol) PHQ-2 Answer Date Recorded Patient Health Questionnaire-2 Score 5 04/07/2023 Comments No Sex and Gender Information Value Date Recorded Sex Assigned at Female 05/21/2025 11:03 AM CDT Legal Sex Female 10:[address] MAGISTRATE Gender Identity Female 05/21/2025 11:03 AM CDT Sexual Orientation Not on file COVID-19 Exposure Response Date Recorded In the last 10 days, have yo u been in contact with someone who was confirmed or suspected to have Coronavirus/COVID-19? No / Unsure 04/07/2023 1:53 PM CDT documented as of this encounter Plan of Treatment Upcoming Encounters Date Type Department Care Team (Late st Contact Info) Description 06/13/2025 2:00 PM CDT Office Visit [facility] Multispecialty Care - [place] [address] [address] [place] [address] Paul Chau MD [address] [place] [address] documented as of this encounter Visit Diagnoses Not on filedocumented in this encounter Additional Health Concerns Assessment Noted Time PHQ-9 Depression Total Score: 21 023 2:50 PM CDT documented as of this encounter Care Teams Trading Analyst Relationship Specialty Start Date End Date Paul Chau MD [address] [place] [address] PCP - General INTERNAL MEDICINE 04/19/23 documented as of this encounter
--- OUTSIDE RECORDS SUMMARY | 2025-05-23 06:03 | XMS_ITS | Clinical Summary ---
Author Organization [facility] Address [address] [place] [address] Care Team Providers Care Connection Worker Name Role Phone Jordan Vick MD Primary Care Provider + Allergies No known active allergies Medications ferrous [...] a day for 7 days 7.5 mL 05/04/20 25 Active Problems No known active problems Encounters Date Type Department Care Team Description 04/27/2025 7:15 PM CDT Office Visit [facility] Medical Group [facility] at [address] [address] Camilla Gary NP Acute otitis externa of right ear, unspecified type (Primary Dx) from Last 3 Months Surgical History Surgery Date Site/Laterality Comments OTHER SURGICAL HISTORY 2004 : 12 hr labor OTHER SURGICAL HISTORY 2004 : 36 hr labor OTHER SURGICAL HISTORY 2008 : 16 hr labor OTHER SURGICAL HISTORY 2009 : Incomplete OTHER SURGICAL HISTORY 2014 : Spontaneaous OTHER SURGICAL HISTORY 2015 : 6 hr labor OTHER SURGICAL HISTORY 2010 : 12 hr labor TONSILLECTOMY Tonsillectomy AUGMENTATION MAMMOPLASTY Augmentation mammoplasty OTHER SURGICAL HISTORY 2007 Abnormal Pap - LSIL: Colposcopy - no biopsy Medical History Medical History Date Comments Hx Other Medical ; Comm ents: Elective pitocin IOL. .; Outcome: 39W0D week 7lb(s) 1 oz Female Hx Other Medical ; Comm ents: Spontaneous labor, .; Outcome: 34W0D week 7lb(s) 3 oz Male Hx Other Medical ; Comm ents: Spontaneous labor, .; Outcome: 38W0D week 7lb(s) 11 oz Female Hx Other Medical Hx Other Medical ; Comm ents: Shortened cervix on vaginal progesterone. Labor, .; Outcome: 37W0D week 7lb(s) 7 oz Male Hx Other Medical ; Comm ents: Labor, . Blood patch x 3 for epidural spinal headache.; Outcome: 38W0D week 8lb(s) 1 oz Female Hx Other Medical Abnormal Pap - LSIL; Comments: RED 09/11/2016 - Family History Medical History Relation Name Comments Colon cancer Father Cancer, colon; RED 09/11/2016 - Onset early 40s Hypertension Father Hypertension; Lung cancer Maternal Grandfather Cancer, lung; Colon cancer Maternal Grandmother Cancer, colon; Breast cancer Mother's Sister Cancer, keisha ast; Heart attack Paternal Grandfather Myocard ial infarction; Prostate cancer Paternal Grandfather Canc er, prostate; Relation Name Status Comments Father Maternal Grandfather Maternal Grandmother Mother's Sister Paternal Grandfather Social History Tobacco Use Types Packs/Day Years Used Date Smoking Tobacco: Never Smokeless Tobacco: Never Alcohol Use Standard Drinks/Week Comments Yes 0 (1 standard drink = 0.6 oz pur e alcohol) social Comments No Sex and Gender Information Value Date Recorded Sex Assigned at Not on file Legal Sex Female 7:49 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 Gender Identity Female 06/07/2020 9:02 AM CDT Sexual Orientation Straight 06/07/2020 9: 02 AM CDT Obstetrics History Last Filed Vital Signs Vital Sign Reading [...] 06/07/2020 9:35 AM CDT Plan of Treatment Health Maintenance Due Date Last Done Comments Cervical Cancer Screening 1985 Depression Screening 1985 Varicella Vaccines (1 of 2 - 13+ 2-dose series) 1998 Regular Well Visit/Exam 18-64 2003 Influenza Vaccine (Season Ended) 2025 12/17/19 16 DTaP/Tdap/Td Vaccine (2 - Td or Tdap) 12/17/2025 12/17/2015 Hepatitis B Screening Completed 09/11/2016 Hepatitis C Screening Completed 09/11/2016 HPV Vaccines Aged Out No longer eligi ble based on patient's age to complete this topic Pneumococcal vaccine <65 Aged Out No longer eligible based on patient's age to complete this topic Procedures Procedure Name Priority Date/Time Associated Diagnosis Comments HEP C AB W/RFL HCV Routine 09/11/2016 12 :54 PM CDT HEPATITIS B SURFACE ANTIGEN Routine 09/11/2016 12:54 PM CDT from Last 3 Months or Most Recently Relevant to Health Maintenance Results * HEP C AB W/RFL HCV (09/11/2016 12:54 PM CDT) Pathologist [facility] SIGNAL TO CUT-OFF 0.02 <1.00 [facility] HISTORICAL RESULTS Comment: Test performed at [facility] [address] [address] Director: FAUSTINO ALAN DO,MPH Hep C Ab NON-REACT JAS NON-REACT JAS [facility]ISTORICAL RESULTS 09/11/2016 12:5 4 PM CDT Odilia Mabry MD LAB MICROBIOLOGY - GE NERAL ORDERABLES Final Result Performing Organization Address City/[facility] Co de Phone Number [facility] HISTORICAL RESULTS * Hepatitis B surface antigen (09/11/2016 12:54 PM CDT) Pathologist [facility] HepBsAg NON-REACT JAS NON-REACT JAS [facility]OR[facility] RES[facility] Comment: Test performed at [facility] [address] [address] Director: FAUSTINO ALAN DO,MPH 09/11/2016 12:5 4 PM CDT us Odilia Mabry MD LAB MICROBIOLOGY - GE NERAL ORDERABLES Final Result Performing Organization Address City/[facility]/ZIP Co de Phone Number [facility] HISTORICAL RESULTS from Last 3 Months or Most Recently Relevant to Health [place] [address] [employer] HMO [facility] HMO Care Teams Connection Worker Relationship Specialty Start Date End Date Jordan Vick MD [address] [facility] [place] [address] PCP - General 06/03/20
--- OUTSIDE RECORDS SUMMARY | 2025-05-23 06:03 | XMS_ITS | Encounter Summary ---
Author Organization [facility] Address [address] [place] [address] Care Team Providers Care Allied Health Professional Name Role Phone Paul Chau MD Primary Care Provider [phone] Encounter Details Date Type Department Care Team (Latest Contact Info) Description 06/22/2023 XOS Digitalhart Message Enc [address] [phone] Paul Chau MD [facility] [address] [phone] Side effects of the Prozac Social History Tobacco Use Types Packs/Day Years Used Date Smoking Tobacco: Never Smokeless Tobacco: Never Comments:Counseled by Dr. Malgorzata stiles Alcohol Use Standard Drinks/Week Comments Yes 3.3 (1 standard drink = 0.6 oz p ure alcohol) PHQ-2 Answer Date Recorded Patient Health Questionnaire-2 Score 1 05/21/2023 Comments No Sex and Gender Information Value Date Recorded Sex Assigned at Female 05/21/2025 11:03 AM CDT Legal Sex Female 10:27 AM RN HOSPITAL Gender Identity Female 05/21/2025 11:03 AM CDT Sexual Orientation Not on file documented as of this encounter Plan of Treatment Upcoming Encounters Date Type Department Care Team (Late st Contact Info) Description 06/13/2025 2:00 PM CDT [facility] [phone] Paul Chau MD [facility] [address] [place] [address] documented as of this encounter Visit Diagnoses Not on filedocumented in this encounter Additional Health Concerns Assessment Noted Time PHQ-9 Depression Total Score: 21 023 2:50 PM CDT documented as of this encounter Care Teams Allied Health Professional Relationship Specialty Start Date End Date Paul Chau MD [address] [facility] [address] [place] [address] PCP - General INTERNAL MEDICINE 04/19/23 documented as of this encounter
--- OUTSIDE RECORDS SUMMARY | 2025-05-23 06:03 | XMS_ITS | Encounter Summary ---
Author Organization [facility] Address Counts include 234 beds at the [facility] [place] [address] Care Team Providers Care Dial Marker Name Role Phone Paul Chau MD Primary Care Provider [phone] Encounter Details Date Type Department Care Team (Latest Contact Info) Description 04/27/2025 Results [facility] [address] [place] [address] Iliana Luna, ACQUISITION MARKETING COORDINATOR [address] [place], [place] [phone] CBC W/DIFF AUTOMATED, LIPASE, COMPREHENSIVE METABOLIC PANEL, US ABD LIMITED Social History Tobacco Use Types Packs/Day Years [...] AM CDT Legal Sex Female 10:27 AM BOX LIDDER Gender Identity Female 05/21/2025 11:03 AM CDT Sexual Orientation Not on file documented as of this encounter Plan of Treatment Upcoming Encounters Date Type Department Care Team (Late st Contact Info) Description 06/13/2025 2:00 PM CDT [facility] [address] [place] [address] Paul Chau MD [address] [facility] [address] [place] [address] documented as of this encounter Visit Diagnoses Not on filedocumented in this encounter Additional Health Concerns Assessment Noted Time PHQ-9 Depression Total Score: 22 025 4:06 PM CDT documented as of this encounter Care Teams Dial Marker Relationship Specialty Start Date End Date Paul Chau MD [address] [address] PCP - General INTERNAL MEDICINE 04/19/23 documented as of this encounter
--- OUTSIDE RECORDS SUMMARY | 2025-05-23 06:03 | XMS_ITS | Encounter Summary ---
Author Organization [facility] Address [facility] [place] [address] Care Team Providers Care Reproducer Name Role Phone Paul Chau MD Primary Care Provider [phone] Encounter Details Date Type Department Care Team (Latest Contact Info) Description 11/10/2024 Dynamis Softwaret Message Enc [address] [place] [address] Paul Chau MD [facility] [address] [phone] Neurologist Update Social History Tobacco Use Types Packs/Day Years [...] AM CDT Legal Sex Female 10:27 AM FIRE INVESTIGATOR Gender Identity Female 05/21/2025 11:03 AM CDT Sexual Orientation Not on file documented as of this encounter Plan of Treatment Upcoming Encounters Date Type Department Care Team (Late st Contact Info) Description 06/13/2025 2:00 PM CDT [facility] [place] [address] [address] [place], [place] [phone] Paul Chau MD [address] [place] [address] documented as of this encounter Visit Diagnoses Not on filedocumented in this encounter Additional Health Concerns Assessment Noted Time PHQ-9 Depression Total Score: 1 05/24/20 24 1:26 PM CDT documented as of this encounter Care Teams Reproducer Relationship Specialty Start Date End Date Paul Chau MD [address] [address] PCP - General INTERNAL MEDICINE 04/19/23 documented as of this encounter
--- OUTSIDE RECORDS SUMMARY | 2025-05-23 06:03 | XMS_ITS | Encounter Summary ---
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 Gender Identity Female 05/21/2025 11:03 AM CDT Sexual Orientation Not on file documented as of this encounter Plan of Treatment Upcoming Encounters Date Type Department Care Team (Late st Contact Info) Description 06/13/2025 2:00 PM CDT Office Visit [place] [address] [address] [place] [address] Paul Chau MD [address] [place] [address] documented as of this encounter Visit Diagnoses Not on filedocumented in this encounter Additional Health Concerns Assessment Noted Time PHQ-9 Depression Total Score: 21 023 2:50 PM CDT documented as of this encounter Care Teams Border Patrol Agent Relationship Specialty Start Date End Date Paul Chau MD [address] [address] PCP - General INTERNAL MEDICINE 04/19/23 documented as of this encounter
--- OUTSIDE RECORDS SUMMARY | 2025-05-23 06:03 | XMS_ITS | Encounter Summary ---
Author Organization [facility] Address [facility] [place] [address] Care Team Providers Care Fuel Cell Builder Name Role Phone Paul Chau MD Primary Care Provider [phone] Paul Chau MD Primary Care Provider [phone] Encounter Details Date Type Department Care Team (Late st Contact Info) Description 04/08/2023 Jiahehart Message Enc [facility] Medical Group Multispecialty Care - [place] [address] [address] [place] [address] [place] [address] [place] [address] 157 [place] [address] Stomach Pains Social History Tobacco Use Types Packs/Day Years [...] AM CDT Legal Sex Female 10:27 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 Gender Identity Female 05/21/2025 11:03 AM CDT [...] Description 06/13/2025 2:00 PM CDT Office Visit [facility] Medical Group Multispecialty [facility] - [place] [address] [address] [place] [address] Paul Chau MD [address] [place] [address] documented as of this encounter Visit Diagnoses Not on filedocumented in this encounter Additional Health Concerns Assessment Noted Time PHQ-9 Depression Total Score: 21 023 2:50 PM CDT documented as of this encounter Care Teams Fuel Cell Builder Relationship Specialty Start Date End Date Paul Chau MD [address] [place] [address] PCP - General INTERNAL MEDICINE 04/19/23 Paul Chau MD [address] [place] [address] PCP - General INTERNAL MEDICINE 04/07/23 04/18/23 documented as of this encounter
--- OUTSIDE RECORDS SUMMARY | 2025-05-23 06:03 | XMS_ITS | Clinical Summary ---
Author Organization [facility] Address [address] [place] [address] Phone Care Team Providers Care Check Weigher Name Role Phone Jordan Vick MD Primary Care Provider [phone] Social History Tobacco Use Types Packs/Day Years Used Date Smoking Tobacco: Never Assessed Comments Unknown Sex and Gender Information Value Date Recorded Sex Assigned at Not on file Legal Sex Female 3:12 PM RETOUCHING OPERATOR Gender Identity Female 11/10/2024 8:39 AM RETOUCHING OPERATOR Sexual Orientation Not on file Plan of Treatment Health Maintenance Due Date Last Done Comments DTAP/TDAP/TD VACCINES (1 - Tdap) 2004 HEPATITIS B VACCINES (1 of 3 - 19+ 3-dose series) 2004 HPV/Cotest (21-29) 2006 CERVICAL CANCER SCREENING 2015 HPV/Cotest (30-65) 2015 PAP SMEAR 2015 INFLUENZA VACCINE (#1) 2025 HPV VACCINES Aged Out No longer eligi ble based on patient's age to complete this topic Insurance [employer] CHOICE POS II Care Teams Check Weigher Relationship Specialty Start Date End Date Jordan Vick MD [address] [facility] [place] [id number] PCP - General Internal Medicine 10/23/21
[2025-05-23] MEDS: TRANEXAMIC ACID 1,000 MG/10 ML AMPUL 1000 MG IV PUSH (06:44)
--- NOTE | 2025-05-23 06:47 | WPDHPUPDATE1 ---
History and Physical Update Update Date/Time: 05/23/25 06:47 History and Physical has been reviewed, including an updated exam of the patient. There are NO changes in the patient's condition. Risks, benefits, and alternatives have been discussed and questions answered. Patient agrees to proceed with procedure.
--- NOTE | 2025-05-23 06:47 | W.PM.PROC2 ---
Procedure Note - Detailed Date of Procedure 05/23/25 Pre-op Diagnosis History of Breast Augmentation Post-op Diagnosis Same Procedure Performed Bilateral breast implant exchange Surgeon Owen Kenny MD Anesthesia General Findings Previous implants Smooth silicone 800cc Right ruptured Left intact New implants: Bilateral Joon Jacques SoftTouch 800cc Right: REF# [id number] SN [id number] Left: REF# [id number] SN [id number] Capsule soft, no fluid collection, no worrisome features Description of Procedure Preoperatively the risks, benefits, alternatives were discussed in extensive detail. I wanted to be very realistic about the risks involved as well as expectations. We have reviewed the implant catalog and options and she has selected her implant understanding base width / volume / projections of each option. I was clear about how we could actually make her worse. Answered all questions to satisfaction. Voiced a clear understanding. Consent obtained. She was taken the operating room placed supine on the operating room table. Anesthesia provided by anesthesiology and prepped and draped in a standard sterile fashion. Surgical time-out was taken. 1% lidocaine and 0.25% Marcaine with epinephrine was used to provide a field block. Tegaderm nipple hinton were placed. Ten blade used to excise the previous IMF scars. Dissection was continued down until the capsules were identified and and entered. Implants removed. I then copiously irrigated with 3 L of saline solution on TUR tubing. Verified strict hemostasis. I then irrigated with Phase One solution. Using a no-touch technique and a Padilla funnel the implant was introduced into the pocket. This was closed with 2-0 PDS followed by 3-0 Monocryl and a running subcuticular 4-0 Monocryl followed by tissue glue. Dressings were placed. She was woken taken to the PACU without difficulty. All instrument sponge counts were correct at the end of the case. Estimated Blood Loss 20 Drains No Packing No Pathology None sent Complications No immediate complications Condition Stable Disposition PACU
--- NOTE | 2025-05-23 06:52 | SUR.PREOP ---
DR DAVID IN ROOM MARKING PT. PT'S SPOUSE AND FEMALE STAFF MEMBER IN ROOM.
--- NOTE | 2025-05-23 06:53 | WPDANESEPPF ---
Anes - Initial Pre Proc Eval Procedure: Operation Date: 05/23/25 07:30 Proposed Procedures p Bilateral Breast Implant Exchange - Owen Kenny MD Date/Time: 05/23/25 06:53 Surgeon: Owen Kenny MD Pre Op Diagnosis: History of Breast Augmentation Patient Data Age: 39 Gender: F Height: 1.68 m Weight: 72.1 kg Last Vital Signs Temp 97.4 F L 05/23/25 06:29 Pulse 72 05/23/25 06:29 Resp 16 05/23/25 06:29 BP 101/80 05/23/25 06:29 Pulse Ox 99 05/23/25 06:29 O2 Del Method Room Air 05/23/25 06:29 Allergies Allergy/AdvReac Type Severity Reaction Status Date / Time povidone-iodine (From Allergy Intermediate rash Verified 05/23/25 06:08 Betadine) adhesive tape Allergy Unknown Rash Verified 05/23/25 06:08 Home Medications ?Medication ?Instructions ?Recorded ?Confirmed ?Type doxycycline hyclate 100 mg capsule 100 mg PO Q12H #20 caps 12/28/23 05/23/25 Rx valacyclovir 500 mg tablet 500 mg PO DAILY #90 tabs 01/31/24 05/23/25 Rx ondansetron 4 mg disintegrating 4 mg PO Q8H PRN nausea and 04/12/25 05/23/25 Rx tablet vomiting #15 tabs buspirone 5 mg tablet 5 mg PO BID PRN anxiety 05/09/25 05/23/25 History fexofenadine 180 mg tablet 180 mg PO DAILY 05/10/25 05/23/25 History (Jyoti Allergy) triamcinolone acetonide 55 mcg 2 spray intranasal DAILY 05/10/25 05/10/25 History nasal spray aerosol (Nasacort) Patient hx anesthesia problems: none Family hx anesthesia problems: none Results Review: All pre-operative results and documents have been reviewed as part of the pre-operative evaluation. [facility]LY [facility], [facility] Past Medical History Medical History HSV infection Asthma Surgical History Surgical History H/O breast augmentation H/O tubal ligation History of tonsillectomy History of colposcopy H/O dilation and curettage Family History Family History Father Hypertension Family history of elevated blood lipids Social History Social History Smoking status: Never smoker Second hand tobacco smoke exposure: No Alcohol intake: current Alcohol use details: social Substance use: never Substance use type: does not use Do You Feel Safe in your Home?: Yes Lack of Transportation: No Lack of Food: Never True Current Housing: I Have Housing Concerned About Future Housing: No Difficulty Paying Gas/Electric Bills: No Difficulty Paying for Meds: No Currently Unemployed: No Education: Trade/Vocational Certificate Difficulty w/ Childcare or Family Care: No Living arrangements: with family Spiritual care concerns: No Anes - Eval Final PreProcedure Day of Procedure 05/23/25 06:53 Heart: regular rate and rhythm Lungs: clear to auscultation Airway: Mallampati scale class II Neurological: alert and oriented Last oral intake: >/= 8 hours ASA classification: II Anesthetic plan: proceed Anesthesia type and monitoring: general Results Review: All pre-operative results and documents have been reviewed as part of the pre-operative evaluation. Informed Consent: The patient's anesthetic plan and its attendant risks and benefits were discussed with the patient/family/POA. Questions were solicited and answers provided to the satisfaction of the patient/family/POA.
[2025-05-23] MEDS: LACTATED RINGERS 1,000 ML 30 ML IV CONT ×2 (06:56→09:06)
[2025-05-23] MEDS: ceFAZolin SODIUM 2 GM/20 ML SW SYRINGE IV PUSH (07:21)
[2025-05-23] MEDS: LIDO 1%/EPINEPHRINE 1:100,000 10 ML VIAL 30 ML INFILTRATE (07:30)
--- NOTE | 2025-05-23 08:46 | WPDANESPN ---
Anes - Prog Note Post-Op Date/Time: 05/23/25 08:46 Vital Signs: Last Vital Signs Temp 97.3 F L 05/23/25 08:34 Pulse 89 05/23/25 08:45 Resp 20 05/23/25 08:45 BP 116/70 05/23/25 08:45 Pulse Ox 100 05/23/25 08:45 O2 Del Method Simple Face Mask 05/23/25 08:45 O2 Flow Rate 6 05/23/25 08:45 Pain Score (VAS): 3 I/O: Intake & Output 05/22/25 05/23/25 05/23/25 23:59 07:59 15:59 Intake Total 800 Balance 800 Patient Feedback: Patient satisfied with anesthetic care.
[2025-05-23] MEDS: fentaNYL CITRATE INJ (*CRX) 100 MCG/2 ML VIAL 25 MCG IV PUSH ×4 (08:57→09:10)
[2025-05-23] MEDS: oxyCODONE HCL (*CRX) 5 MG TAB IR PO (09:33)
== END 2025-05-23 10:02 | disposition home or self-care (01) ==
PROVIDERS: PCP Internal Medicine; Visit Provider Surgery Plastic and Reconstructive Surgery
PROC: (CPT 19342; principal; 2025-05-23 07:30)
DX: T85.41XA Breakdown (mechanical) of breast prosthesis and implant, initial encounter (principal); Y83.8 Other surgical procedures as the cause of abnormal reaction of the patient, or of later complication, without mention of misadventure at the time of the procedure
CPT/HCPCS: 19330; 19328; 19325

== ENCOUNTER 2025-06-20 10:15 | Outpatient (CLI) | payer OTHER, SELFPAY ==
--- OUTSIDE RECORDS SUMMARY | 2025-06-20 10:45 | XMS_ITS | Clinical Summary ---
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 Gender Identity Female 11/10/2024 8:39 AM GUN MECHANIC Sexual Orientation Not on file Plan of Treatment Health Maintenance Due Date Last Done Comments HPV VACCINES (1 - 3-dose series) 2000 DTAP/TDAP/TD VACCINES (1 - Tdap) 2004 HEPATITIS B VACCINES (1 of 3 - 19+ 3-dose series) 09/17 HPV/Cotest (21-29) 2006 CERVICAL CANCER SCREENING 2015 HPV/Cotest (30-65) 2015 PAP SMEAR 2015 INFLUENZA VACCINE (#1) 2025 Insurance [employer] CHOICE POS II Care Teams House Piping Inspector Relationship Specialty Start Date End Date Jordan Vick MD [address] [facility] [place] [id number] PCP - General Internal Medicine 10/23/21
--- OUTSIDE RECORDS SUMMARY | 2025-06-20 10:45 | XMS_ITS | Encounter Summary ---
Author Organization [facility] Address [facility] [place] [address] Care Team Providers Care Extract Wringer Name Role Phone Paul Chau MD Primary Care Provider Encounter Details Date Type Department Care Team (Latest Contact Info) Description 04/27/2025 Results Follow-Up [facility] Medical Group Multispecialty Care - [place] 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
--- OUTSIDE RECORDS SUMMARY | 2025-06-20 10:45 | XMS_ITS | Encounter Summary ---
Author Organization [facility] Address Formerly [facility] [place] [address] Care Team Providers Care Faa Certified Powerplant Mechanic Name Role Phone Paul Chau MD Primary Care Provider [phone] Encounter Details Date Type Department Care Team (Latest Contact Info) Description 05/07/2023 BigTreet Message Enc [facility] Medical Group Multispecialty Care - [place] [address] [place] [address] [address] [place] [address] Palu Chau MD [address] [facility] [address] [place], [place] [id number] Covid vaccine info Social History Tobacco Use [...] AM CDT 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
--- OUTSIDE RECORDS SUMMARY | 2025-06-20 10:45 | XMS_ITS | Clinical Summary ---
Author Organization [facility] Address [address] [place] [address] Care Team Providers Care Color Maker Formulator Name Role Phone Jordan Vick MD Primary Care Provider + Allergies No known active allergies Medications ferrous sulfate (IRON, FERROUS SULFATE,) 325 mg (65 mg of elemental iron) tablet take 1 tablet by oral route 1 times every day 30 1 01/20/2017 Active ibuprofen (ADVIL,MOTRIN) 600 mg tablet Take 1 tablet (600 mg total) by mouth every 6 (six) hours as needed for pain 30 tablet 06/03/2020 Active multivitamin tablet,chewable Take by mouth Active [...] 3 (three) times a day as needed 04/10/2025 Active norethindrone (AYGESTIN) 5 mg tablet 04/24/2025 Active Active Problems No known active problems Encounters Date Type Department Care Team Description 04/27/2025 7:15 PM CDT Office Visit [facility] Medical Group [facility] Care at [address] [phone] Camilla Gary NP Acute otitis externa of right ear, unspecified type (Primary Dx) from Last 3 Months Surgical History Surgery Date Site/Laterality Comments OTHER SURGICAL HISTORY 2003 : 12 hr labor OTHER SURGICAL HISTORY [...] on file Legal Sex Female 7:49 PM DECKHAND Gender Identity Female 06/07/2020 9:02 AM CDT [...] series) 1998 Regular Well Visit/Exam 18-64 2003 HPV Vaccines (1 - 3-dose SCD M series) 2012 Influenza Vaccine (#1) 2025 12/17/2015 DTaP/Tdap/Td Vaccine (2 - Td or Tdap) 12/17/2025 12/17/2015 Hepatitis B Screening Completed 09/11/2016 Hepatitis C Screening Completed 09/11/2016 Pneumococcal vaccine <65 Aged Out No longer [...] [facility] RES[facility] Comment: Test performed at [facility] [address] [address] Director: FAUSTINO ALAN DO,MPH Hep C Ab NON-REACT JAS NON-REACT JAS [facility] RES[facility] 09/11/2016 12:5 4 PM CDT Odilia Mabry MD LAB MICROBIOLOGY - GE NERAL ORDERABLES Final Result [facility]OR[facility] * Hepatitis B surface antigen (09/11/2016 12:54 PM CDT) [facility] HepBsAg NON-REACT JAS NON-REACT JAS [facility] Comment: Test performed at [facility] [address] [address] Director: FAUSTINO ALAN DO,MPH 09/11/2016 12:5 4 PM CDT Odilia Mabry MD LAB MICROBIOLOGY - GE NERAL ORDERABLES Final Result [facility]ORICAL RESULTS from Last 3 Months or Most Recently Relevant to Health Maintenance Insurance [facility] HMO [facility] HMO/O Address: [facility] [address] [place] [address] [facility] HMO Care Teams Color Maker Formulator Relationship Specialty Start Date End Date Jordan Vick MD [address] [facility] [place] [address] PCP - General 06/03/20
--- OUTSIDE RECORDS SUMMARY | 2025-06-20 10:45 | XMS_ITS | Encounter Summary ---
Author Organization [facility] Address 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
--- OUTSIDE RECORDS SUMMARY | 2025-06-20 10:45 | XMS_ITS | Encounter Summary ---
Author Organization [facility] Address [address] [place] [address] Care Team Providers Care Nurse Wound Name Role Phone Paul Chau MD Primary Care Provider [phone] Encounter Details Date Type Department Care Team (Late st Contact Info) Description 08/23/2024 MyChart Message Enc [facility] Medical Group Multispecialty Care - [place] [address] [place] [address] [address] [place] [address] [place] [address] [place] [address] [address] [place], [place] [id number] MRI Social History Tobacco Use Types Packs/Day [...] AM CDT 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 I have faxed records request to chiropractors that pt states she seen documented in this encounter Plan of Treatment Not on file documented as of this encounter Visit Diagnoses Not on filedocumented in this encounter Additional Health Concerns Assessment Noted Time PHQ-9 Depression Total Score: 1 05/24/20 24 1:26 PM CDT documented as of this encounter Care Teams Nurse Wound Relationship Specialty Start Date End Date Paul Chau MD [address] [address] PCP - General INTERNAL MEDICINE 04/19/23 documented as of this encounter
--- OUTSIDE RECORDS SUMMARY | 2025-06-20 10:45 | XMS_ITS | Encounter Summary ---
Author Organization [facility] Address [facility]ly [facility] [place] [address] Care Team Providers Care Airport Utility Worker Name Role Phone Paul Chau MD Primary Care Provider [phone] Encounter Details Date Type Department Care Team (Latest Contact Info) Description 10/15/2023 Sapient Message Enc [facility] Medical Group Multispecialty Care - [place] [address] [place] [address] [address] [place] [address] [place] [address] [place] [address] [address] [place], [place] [phone] Follow-up appointment for mood medications Social History [...] AM CDT 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
--- OUTSIDE RECORDS SUMMARY | 2025-06-20 10:45 | XMS_ITS | Encounter Summary ---
Author Organization [facility] Address [facility] [place] [address] Care Team Providers Care Tree Scout Name Role Phone Paul Chau MD Primary Care Provider [phone] Paul Chau MD Primary Care Provider [phone] Encounter Details Date Type Department Care Team (Late st Contact Info) Description 04/08/2023 Dhaani Systemshart Message Enc [facility] Medical Group Multispecialty Care - [place] [address] [address] [place] [address] [place] [address] [place] [address] [address] [place] [address] Stomach Pains Social History Tobacco [...] AM CDT 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
--- OUTSIDE RECORDS SUMMARY | 2025-06-20 10:45 | XMS_ITS | Clinical Summary ---
Author Organization [facility] Address [address] [place] [address] Care Team Providers Care Coffee Shop Manager Name Role Phone Paul Chau MD Primary Care Provider [phone] Allergies Active Allergy Reactions Criticality Noted Date Comments Povidone Iodine Hives,Itching,Rash,Redness Low 04/15 Medications fexofenadine (JULIETA) 180 MG tablet Take 1 tablet (180 mg total) by mouth daily. Active triamcinolone acetonide (NASACORT) 55 MCG/ACT nasal inhaler 2 sprays by Each Nostril route daily. Active Multiple Vitamin (MULTIVITAMIN OR) Active levalbuterol (XOPENEX HFA) 45 MCG/ACT inhalerIndicati ons:Acute sinusitis, recurrence not specified, unspecified location Inhale 1 puff into the lungs every 8 (eight) hours as needed for Wheezing. 15 g 1 05/07/20 23 Active valACYclovir (VALTREX) 500 MG tabletIndicatio ns:Cold sore Take 1 tablet (500 mg total) by mouth daily. 14 tablet 10/15/20 23 Active ALPRAZolam (XANAX) 0.25 MG tabletIndicatio ns:Panic attacks take 1 tablet by mouth nightly as needed for sleep 30 tablet 2 05/25/20 24 Active cyclobenzaprine (FLEXERIL) 5 MG tabletIndicatio ns:Chronic bilateral low back pain without sciatica Take 1 tablet (5 mg total) by mouth nightly as needed for Muscle Spasms. 90 tablet 08/08/20 24 Active clotrimazole (LOTRIMIN) 1 % external solutionIndicat ions:Otitis externa, fungal, right ear Apply topically see administration instructions for 14 days. Apply liquid solution into right ear canal twice daily. Wait 3-5 minutes prior to standing. 29.57 mL 06/13/20 25 025 Active terbinafine (LAMISIL) 250 MG tabletIndicatio ns:Otitis externa, fungal, right ear Take 1 tablet (250 mg total) by mouth 2 (two) times daily. 10 tablet 06/13/20 25 Active busPIRone (BUSPAR) 5 MG tabletIndicatio ns:Panic attacks,EVA (generalized anxiety disorder) Take 1 tablet (5 mg total) by mouth 3 (three) times daily as needed. 270 tablet 06/13/20 25 Active clobetasol (TEMOVATE) 0.05 % external solution APPLY TO SCALP EVERY DAY FOR 7 DAYS 03/25/20 24 025 Discontin ued(Thera py completed ) ketorolac (TORADOL) 10 MG tabletIndicatio ns:Chronic bilateral low back pain without sciatica TAKE 1 TABLET BY MOUTH EVERY 6 HOURS NEEDED FOR PAIN. 20 tablet 09/16/20 24 025 Discontin ued(Thera py completed ) dicyclomine (BENTYL) 10 MG capsuleIndicati ons:Irritable bowel syndrome with diarrhea Take 1 capsule (10 mg total) by mouth 3 (three) times daily as needed. Use for abdominal cramping. 30 capsule 1 04/10/20 25 025 Discontin ued(Thera py completed ) omeprazole (PRILOSEC) 40 MG capsuleIndicati ons:Gastroesoph ageal reflux disease without esophagitis Take 1 capsule (40 mg total) by mouth daily. 90 capsule 04/18/20 25 025 Discontin ued(Thera py completed ) busPIRone (BUSPAR) 5 MG tabletIndicatio ns:Panic attacks,EVA (generalized anxiety disorder) TAKE 1 TABLET BY MOUTH 3 TIMES DAILY NEEDED. 270 tablet 05/02/20 25 025 Discontin ued(Reord er) clotrimazole (LOTRIMIN) 1 % external solutionIndicat ions:Otitis externa, fungal, right ear Apply topically see administration instructions for 14 days. Apply liquid solution into right ear canal twice daily. Wait 3-5 minutes prior to standing. 29.57 mL 05/21/20 25 025 Discontin ued(Reord er) Active Problems Problem Noted Date Diagnosed Date [...] Encounters Date Type Department Care Team Description 06/13/2025 2:00 PM CDT [facility] [place] [address] [facility] [address] [place] [address] aPul Chau MD Follow Up; Anxiety (Panic attacks); Low Back Pain 06/13/2025 Results [facility] [place] [address] [place] [address] Paul Chau MD URINALYSIS AUTO DIP, CBC W/DIFF AUTOMATED, COMPREHENSIVE METABOLIC PANEL, Additional followed-up results: 5 06/13/2025 Travel 05/23/2025 Scan [facility] SRV[facility] Scanned, [facility] Procedure (SCAN) 05/21/2025 11:00 AM CDT Office Visit [facility] [address] [facility] [address] [place] [address] Marcella Harley, DO Ear Problem (Pt states she has had right ear pain for a month. /She was on antibiotic ear drop for 2 weeks./Pt states it still is hurting,. /) 05/21/2025 Travel 05/09/2025 8:11 AM CDT - 05/09/2025 11:59 PM CDT Hospital Encounter [facility] Ultrasound [address] [place] [address] Iliana Luna, TIRE MAN Discharge Disposition: Home or Self Care (Routine Discharge) 05/09/2025 Travel 05/08/2025 Scan [facility] SRVCS Scanned, [facility] Mammogram (SCAN) 05/08/2025 MyChart Message Enc [facility] [address] [address] [address] [place] [address] Paul Chau MD EHR Supplemental Form 05/07/2025 Scan [facility] INFO SRVCS Scanned, [facility] 04/27/2025 10:00 AM CDT Allied Health/Nurse Visit [place] [address] [address] [place] [address] Paul Chau MD Allied Health Visit (labs) 04/27/2025 - 04/27/2025 11:59 PM CDT Hospital Encounter [facility] [address] Paul Chau MD Discharge Disposition: Home or Self Care (Routine Discharge) 04/27/2025 Results [facility] [address] [facility] [address] [place] [address] Iliana Luna, VIKTOR CBC W/DIFF AUTOMATED, LIPASE, COMPREHENSIVE METABOLIC PANEL, US ABD LIMITED 04/26/2025 4:20 PM CDT Office Visit [place] [address] [facility] [address] [place] [address] Iliana Luna, TIRE MAN Abdominal Pain 04/26/2025 Travel 04/18/2025 Telephone [place] [address] [address] [facility] [address] [place] [address] Paul Chau MD Medication 04/13/2025 Telephone [place] [address] [facility] [address] [place] [address] Paul Chau MD Information 04/13/2025 [employer] Message Enc [place] [address] [address] [facility] [address] [place] [address] Paul Chau MD EHR Supplement additional form needed 04/12/2025 Scan [facility] INFO SRVCS Scanned, Doc [facility] Group CT (SCAN) 04/10/2025 3:20 PM CDT Office Visit [place] [address] [facility] [address] [place] [address] Paul Chau MD Anxiety (Pt states she had a harrassment issue at work. Pt stated she has been having cramps and going to the restroom. Pt stated she is getting stomach pains from stress wants to know if she needs to go back on IBS ) 04/10/2025 Telephone [place] [address] 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 Gender Identity Female 05/21/2025 11:03 AM CDT Sexual Orientation Straight 06/13/2025 2: 01 PM CDT Last Filed Vital Signs Vital Sign Reading Time Taken Comments Blood Pressure 121/78 06/13/2025 2:01 PM CDT Pulse 73 06/13/2025 2:01 PM CDT Temperature 36.1 C (96.9 F) 06/13/2025 2:01 PM CDT Respiratory Rate 18 06/13/2025 2:01 PM CDT Oxygen Saturation 98% 06/13/2025 2:01 PM CDT Inhaled Oxygen Concentration - - Weight 72.1 kg (159 lb) 06/13/2025 2:01 PM CDT Height 167.6 cm (5' 6) 06/13/2025 2:01 PM CDT Body Mass Index 25.66 06/13/2025 2:01 PM CDT Plan of Treatment Health Maintenance Due Date Last Done Comments Cervical Cancer Screening Pa p Smear (Age 30 to 64) Every 3 Years 1985 Hepatitis B Vaccines (1 of 3 - 19+ 3-dose series) 2004 HPV Vaccines (1 - 3-dose SCD M series) 2012 COVID-19 Vaccine (2023-2 5 season) 2024 07/28/2022, 08/12/2021, 07/22/2021 Annual Physical 06/13/2026 06/13/2025, 05/24/2024, 05/21/2023 Cervical Cancer Screening Mario Alberto pablo with HPV Testing (Age 30 to 64) Every 5 Years 05/21/2027 05/21/2022 Cervical Cancer Screening wi th HPV 05/21/2027 DTaP, Tdap and Td Vaccines ( 2 - Td or Tdap) 03/24/2032 03/24/2022 Hepatitis C Completed 05/24/2024, 05/21/2023 PHQ-2 (Physician [place]) Completed 06/13/2025 Meningococcal B Vaccine Aged Out No l [...] Procedure Name Priority Date/Time Associated Diagnosis Comments HEMOGLOBIN, GLYCOSYLATED Routine 06/13/2025 2:44 PM CDT Annual physical exam General medical exam Drug therapy TSH W/REFLEX Routine 06/13/2025 2:44 PM CDT Annual physical exam General medical exam Drug therapy LIPID PANEL Routine 06/13/2025 2:44 PM CDT Annual physical exam General medical exam Drug therapy COMPREHENSIVE METABOLIC PANEL Routine 06/13/2025 2:44 PM CDT Annual physical exam General medical exam Drug therapy CBC W/DIFF AUTOMATED Routine 06/13/2025 2:44 PM CDT Annual physical exam General medical exam Drug therapy LIPASE Routine 06/13/2025 2:44 PM CDT Drug therapy MG/PCCL UDS SCREEN Routine 06/13/2025 2: 44 PM CDT Drug therapy COLLECTION VENOUS BLOOD VENIPUNCTURE Routine 06/13/2025 2:36 PM CDT Annual physical exam General medical exam Drug therapy URINALYSIS AUTO DIP Routine 06/13/2025 Annual physical exam General medical exam Drug therapy PROCEDURE GENERIC (SCAN ORDER) 05/23/2025 US ABD LIMITED Routine 05/09/2025 8:39 AM [...] Recently Relevant to Health Maintenance Results * MG/PCCL UDS SCREEN (06/13/2025 2:44 PM CDT) [place] SCREEN (U) NEGATIVE <0.5 ng/mL [facility] Comment: See Note A See Note A MORPHINE (U) NEGATIVE <10 ng/mL [facility] Comment: See Note A See Note A AMPHETAMINES PM NEGATIVE <500 ng/mL [facility] Comment: See Note A See Note A BARBITURATES PM (U) NEGATIVE <300 ng/mL [facility] Comment: See Note A See Note A BENZODIAZEPINES PM (U) NEGATIVE <100 ng/mL [facility] Comment: See Note A See Note A COCAINE METABOLITE PM (U) NEGATIVE <150 ng/mL [facility] Comment: See Note A See Note A MARIJUANA METABOLITE PM (U) NEGATIVE <20 ng/mL [facility] Comment: See Note A See Note A METHADONE PM (U) NEGATIVE <100 ng/mL [facility] Comment: See Note A See Note A OPIATES PM (U) NEGATIVE <100 ng/mL [facility] Comment: See Note A See Note A OXYCODONE PM (U) NEGATIVE <100 ng/mL [facility] Comment: See Note A See Note A CREATININE RANDOM (U) 159.9 > or = 20.0 mg/dL [facility] pH PM (U) 7.4 4.5 - 9.0 [facility] OXIDANT NEGATIVE <200 mcg/mL [facility] NOTE [facility] Comment: This drug testing is for medical treatment only. Analysis was performed as non-forensic testing and these results should be used only by healthcare providers to render diagnosis or treatment, or to monitor progress of medical conditions. Note A: The results are presumptive; based only on screening methods, and they have not been confirmed by a definitive method. LDT Notes: Confirmation tests were developed and their analytical performance characteristics have been determined by [facility]. It has not been cleared or approved by the FDA. This assay has been validated pursuant to the CLIA regulations and is used for clinical purposes. Healthcare Providers needing Interpretation assistance, please contact us at [phone] ( ) M-F, 8am to 10pm EST URINE SPECIMEN / Unknown 06/13/2025 2:44 PM CDT 06/14/2025 5:07 AM CDT Narrative Resulting Agency Comment Performing Organization Information: Site ID: [id number] Name: [employer] Address: [address] [place] [address] Director: Seven Nuñez Site ID: [id number] Name: [facility] Address: [address] [address] [place] [address] Director: Terrell Pratt MD Paul Chau MD URINE ORDERABLES Final Result [facility] [place] [facility] [place] [address] [place] [address] [facility] [address] [place] [address], * TSH W/REFLEX (06/13/2025 2:44 PM CDT) Pathologist [facility] TSH 0.634 0.358 - 3.740 uIU/ML 06/13/2025 8:32 PM CDT [facility] 06/13/2025 2:44 PM CDT Paul Chau MD LABORATORY Final Result Performing Organization Address City/[facility]/ZIP Co de Phone Number [facility] [address] [place] [address], [place] [phone] * HEMOGLOBIN, GLYCOSYLATED (06/13/2025 2:44 PM CDT) [facility] HGB A1C 5.1 4.5 - 6.2 % 06/13/2025 8:31 PM CDT [facility] ESTIMATED AVG GLUCOSE 100 74 - 106 MG/DL 06/13/2025 8:31 PM CDT [facility] 06/13/2025 2:44 PM CDT Paul Chau MD LABORATORY Final Result Performing Organization Address City/[facility]/ZIP Co de Phone Number [facility] [address] [place] [address], [place] [phone] * COMPREHENSIVE METABOLIC PANEL (06/13/2025 2:44 PM CDT) Only the most recent of2 resultswithin the time period is included. [facility] SODIUM S/P/B 141 136 - 145 MMOL/L 06/13/2025 8:32 PM CDT [facility] POTASSIUM S/P/B 4.0 3.5 - 5.1 MMOL/L 06/13/2025 8:32 PM CDT -[facility] CHLORIDE S/P/B 105 98 - 107 MMOL/L 06/13/2025 8:32 PM CDT -[facility] CO2 26.6 21 - 32 MMOL/L 06/13/2025 8:32 PM T -[facility] GLUCOSE 77 70 - 99 MG/DL 06/13/2025 8:32 PM CDT [facility] BUN 9 7 - 18 MG/DL 06/13/2025 8:32 PM CDT [facility] CREATININE S/P/B 0.84 0.55 - 1.02 MG/DL 06/13/2025 8:32 PM T [facility] CALCIUM S/P/B 9.6 8.4 - 10.5 MG/DL 06/13/2025 8:32 PM T [facility] BILIRUBIN TOTAL S/P/B 0.4 0.2 - 1.0 MG/DL 06/13/2025 8:32 PM CDT [facility] ALKALINE PHOSPHATASE S/P/B 40 37 - 98 U/L 06/13/2025 8:32 PM CDT [facility] AST 15 15 - 37 U/L 06/13/2025 8:32 PM T [facility] ALT 23 14 - 59 U/L 06/13/2025 8:32 PM CDT [facility] TOTAL PROTEIN S/P/B 7.1 6.4 - 8.2 G/DL 06/13/2025 8:32 PM CDT [facility] ALBUMIN S/P/B 4.1 3.4 - 5.0 G/DL 06/13/2025 8:32 PM T [facility] ANION GAP 9.4 5 - 15 MMOL/L 06/13/2025 8:32 PM CDT [facility] Comment:REFERENCE RANGE NOT ESTABLISHED OSMOLALITY (CALC) 289 MOSM/KG 025 8:32 PM CDT [facility] Comment:REFERENCE RANGE NOT ESTABLISHED GFR ESTIMATE >90 >90 ML/MIN/1. 73 M2 06/13/2025 8:32 PM CDT [facility] GFR NOTES GFR REFERENCE S: 06/13/2025 8:32 PM CDT [facility] Comment: THE ESTIMATED GFR IS CALCULATED USING [...] ml/min/1.73 m2 G5,KIDNEY FAILURE: <15 ml/min/1.73 m2 06/13/2025 2:44 PM CDT Paul Chau MD LABORATORY Final Result [facility] [address] [place] [address], * (ABNORMAL) LIPID PANEL (06/13/2025 2:44 PM CDT) CHOLESTEROL 234(H) <200 MG/DL 06/13/2025 8:32 PM CDT [facility] TRIGLYCERIDES 47 <150 MG/DL 06/13/2025 8:32 PM CDT [facility] HDL 57 >40 MG/DL 06/13/2025 8:32 PM CDT [facility] LDL-C 168(H) <100 MG/DL 06/13/2025 8:32 PM CDT [facility] VLDL CALCULATION 9 5 - 28 MG/DL 06/13/2025 8:32 PM CDT [facility] CHOL/HDL RATIO 4.1(H) 0.0 - 4.0 06/13/2025 8:32 PM CDT [facility] LDL/HDL 2.9(H) 0.41 - 2.13 06/13/2025 8:32 PM CDT [facility] NON HDL CHOLESTEROL 177(H) <140 MG/DL 06/13/2025 8:32 PM CDT [facility] 06/13/2025 2:44 PM CDT Paul Chau MD LABORATORY Final Result [facility] [address] [place] [address], * (ABNORMAL) CBC W/DIFF AUTOMATED (06/13/2025 2:44 PM CDT) Only the most recent of2 resultswithin the time period is included. WBC 5.41 4.00 - 10.80 x10'3/uL 06/13/2025 8:27 PM CDT [facility] RBC 3.75(L) 4.10 - 5.40 x10'6/uL 06/13/2025 8:27 PM CDT [facility] HGB 12.1 12.0 - 16.0 G/DL 06/13/2025 8:27 PM CDT [facility] HCT 36.2 36.0 - 47.0 % 06/13/2025 8:27 PM CDT [facility] MCV 96.5 78.0 - 100.0 FL 06/13/2025 8:27 PM CDT [facility] MCH 32.3(H) 27.0 - 31.0 PG 06/13/2025 8:27 PM CDT [facility] MCHC 33.4 33.0 - 36.0 G/DL 06/13/2025 8:27 PM CDT -[facility] RDW 12.1 11.5 - 14.5 % 06/13/2025 8:27 PM CDT -[facility] PLT 372(H) 150 - 350 x10'3/uL 06/13/2025 8:27 PM CDT -[facility] MPV 10.1 7.4 - 10.4 FL 06/13/2025 8:27 PM CDT -[facility] DIFFERENTIAL TYPE AUTOMATED DIFFERENTIAL 06/13/2025 8:27 PM CDT [facility] NEUTROPHILS % 55.3 % 06/13/2025 8:27 PM CDT [facility] LYMPHOCYTES % 36.4 % 06/13/2025 8:27 PM CDT [facility] MONOCYTES % 6.3 % 06/13/2025 8:27 PM CDT [facility] EOSINOPHILS % 1.1 % 06/13/2025 8:27 PM CDT -[facility] BASOPHILS % 0.9 % 06/13/2025 8:27 PM CDT [facility] IMMATURE GRANS % 0.0 % 06/13/2025 8:27 PM CDT [facility] ABS. NEUTROPHILS 2.99 1.60 - 8.30 x10'3/uL 06/13/2025 8:27 PM CDT -[facility] ABS. LYMPHOCYTES 1.97 0.80 - 4.70 x10'3/uL 06/13/2025 8:27 PM CDT [facility] ABS. MONOCYTES 0.34 0.00 - 1.50 x10'3/uL 06/13/2025 8:27 PM CDT [facility] ABS. EOSINOPHILS 0.06 0.00 - 0.40 x10'3/uL 06/13/2025 8:27 PM CDT [facility] ABS. BASOPHILS 0.05 0.00 - 0.20 x10'3/uL 06/13/2025 8:27 PM CDT [facility] ABS. IMMATURE GRANULOCYTES 0.00 0.00 - 0.03 x10'3/uL 06/13/2025 8:27 PM CDT [facility] 06/13/2025 2:44 PM CDT us Paul Chau MD LABORATORY Final Result Performing Organization Address [facility] Co de Phone Number [facility] [address] [place] [address], [place] [phone] * LIPASE (06/13/2025 2:44 PM CDT) Only the most recent of2 resultswithin the time period is included. LIPASE 75 16 - 77 UNITS/L 06/14/2025 9:05 AM CDT [facility] Comment:NEW REFERENCE RANGE 06/13/2025 2:44 PM CDT us Paul Chau MD LABORATORY Final Result Performing Organization Address [facility] de Phone Number [facility] [address] [place] [address], [place] [phone] * (ABNORMAL) URINALYSIS AUTO DIP (06/13/2025) COLOR (U) YELLOW YELLOW [address], [place] TRANSPARENCY CLEAR CLEAR [address], [place] GLUCOSE (U) NEGATIVE NEGATIVE MG/DL [address], [place] BILIRUBIN (U) NEGATIVE NEGATIVE [address], [place] KETONES MG/DL (U) NEGATIVE NEGATIVE MG/DL [address], [place] SPECIFIC GRAVITY (U) 1.020 1.001 - 1.035 [address], [place] BLOOD (U) TRACE (Non Hemolyzed, Intact)(A) NEGATIVE [address], [place] U PH 7.0 5.0 - 9.0 [address], [place] PROTEIN (U) NEGATIVE NEGATIVE mg/dL [address], [place] UROBILINOGEN 0.2 0.2 - 1.0 EU/dL = mg/dL [address], [place] NITRITES NEGATIVE NEGATIVE MG/DL [address], [place] LEUKOCYTES (U) NEGATIVE NEGATIVE MG[address], [place] URINE SPECIMEN OBTAINED BY CLEAN CATCH PROCEDURE / Unknown 06/13/2025 Paul Chau MD URINE ORDERABLES Final Result [address], [place] [address] [place] [address], [place] [phone] * PROCEDURE GENERIC (SCAN ORDER) (05/23/2025) 05/23/2025 [facility] Scanned SCANNING Final Resu lt * US ABD LIMITED (05/09/2025 8:39 AM [...] 6:50 AM Narrative 05/14/2025 6:55 AM CDT [facility] [address] [place] [address] IMAGING STUDIES: COMPLETE ABDOMINAL ULTRASOUND . ALSO [...] Procedure Note Adrián Escalante MD - 05/14/2025 [facility] [address] [place] [address] IMAGING STUDIES: COMPLETE ABDOMINAL ULTRASOUND . ALSO [...] MD, 05/14/2025 6:50 AM us Iliana Luna NP ULTRASOUND Final Resul t * MAMMOGRAM GENERIC (SCAN ORDER) (05/08/2025) Only the most recent of2 resultswithin the time period is included. Anatomical Region Laterality Modality Other 05/08/2025 [facility] Scanned SCANNING Final Resu lt * AMYLASE (04/27/2025 10:08 AM CDT) Pathologist [facility] AMYLASE S/P/B 98 25 - 115 UNITS/L 04/27/2025 6:03 PM CDT [facility] 04/27/2025 10:0 8 AM CDT Iliana Luna NP LABORATORY Final Resul t Performing Organization Address [facility] de Phone Number [facility] [address] [place] [address], [phone] * CT GENERIC (04/12/2025) Anatomical Region Laterality Modality Other 04/12/2025 [facility] Scanned SCANNING Final Resu lt * HEPATITIS C ANTIBODY (05/24/2024 1:33 PM CDT) Pathologist [facility] HEPATITIS C AB NON-REACTI VE NON-REACT JAS 05/24/2024 10:00 PM CDT [facility] Comment: ANTIBODIES TO HCV NOT DETECTED. DOES NOT EXCLUDE THE POSSIBILITY OF EXPOSURE TO HCV. 05/24/2024 1:33 PM CDT Paul Chau MD LABORATORY Final Result Performing Organization Address [facility] Co de Phone Number [facility] [address] [place] [address], [phone] * PAP SMEAR WITH HPV (05/21/2022) 05/21/2022 [facility] Scanned SCANNING Final Resu lt from Last 3 Months or Most Recently Relevant to Health Maintenance Insurance [employer] Care Teams Coffee Shop Manager Relationship Specialty Start Date End Date Paul Chau MD [address] [place] [address] PCP - General INTERNAL MEDICINE 04/19/23
--- OUTSIDE RECORDS SUMMARY | 2025-06-20 10:45 | XMS_ITS | Encounter Summary ---
Author Organization [facility] Address [facility] [place] [address] Care Team Providers Care Adjunct Psychology Professor Name Role Phone Paul Chau MD Primary Care Provider [phone] Encounter Details Date Type Department Care Team (Latest Contact Info) Description 06/13/2025 Results Follow-Up [facility] Multispecialty Care - [address] [address] [address] [place], [place] [id number] Paul Chau MD [address] [place] [address] [address] [place], [place] [id number] URINALYSIS AUTO DIP, CBC W/DIFF AUTOMATED, COMPREHENSIVE METABOLIC PANEL, Additional followed-up results: 5 Social History Tobacco Use Types Packs/Day Years Used Date Smoking Tobacco: Never Smokeless Tobacco: Never Comments:Counseled by Dr. 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 Question Answer Date of Assessment Author Status Little interest or pleasure in doing things Several days 06/13/2025 3:43 PM CDT Felicia Russ MA Active Feeling down, depressed, or hopeless More than half the days 06/13/2025 3:43 PM AUBRIET Felicia Russ MA Active Patient Health Questionnaire-2 Score 3 06/13/2025 3:43 PM AUBRIET Felicia Russ MA Active * Question Answer Date of Assessment Author Status Trouble falling or staying asleep, or sleeping too much More than half the days 06/13/2025 3:43 PM AUBRIET Felicia Russ MA Active Feeling tired or having little energy Not at all 06/13/2025 3:43 PM AUBRIET Felicia Russ MA Active Poor appetite or overeating Not at all 06/13/2025 3:43 PM AUBRIET Felicia Russ MA Active Feeling bad about yourself - or that you are a failure or have let yourself or your family down Not at all 06/13/2025 3:43 PM AUBRIET Felicia Russ MA Active Trouble concentrating on things, such as reading the newspaper or watching television Several days 06/13/2025 3:43 PM AUBRIET Felicia Russ MA Active Moving or speaking so slowly that other people could have noticed? Or the opposite - being so fidgety or restless that you have been moving around a lot more than usual. Not at all 06/13/2025 3:43 PM Felicia Conway MA Active Thoughts that you would be better off or hurting yourself in some way Not at all 06/13/2025 3:43 PM Felicia Conway MA Active Patient Health Questionnaire-9 Score 6 06/13/2025 3:43 PM Felicia Conway MA Active * Calculated C-SSRS Risk Score (Lifetime/Recent) Answer Date of Assessment Author Status No Risk Indicated 06/13/2025 3:03 PM Paul Gongora MD Active * If you checked off any problems on this questionnaire so far, Question Answer Date of Assessment Author Status How difficult have these problems made it for you to do your work, take care of things at home, or get along with other people? Not difficult at all 06/13/2025 3:43 PM CDT Felicia Russ MA Active * Over the last 2 weeks, how often have you been bothered by any of the following problems? Question Answer Date of Assessment Author Status Feeling nervous, anxious, or on edge 1 06/13/2025 3:43 PM CDT Felicia Russ MA Active Not being able to stop or control worrying 1 06/13/2025 3:43 PM CDT Felicia Russ MA Activ e Worrying too much about different things 1 06/13/2025 3:43 PM CDT Felicia Russ MA Activ e Trouble relaxing 0 06/13/2025 3:43 PM CDT Felicia Russ MA Active Being so restless that it is hard to sit still 0 06/13/2025 3:43 PM CDT Felicia Russ MA Acti ve Becoming easily annoyed or irritable 1 06/13/2025 3:43 PM CDT Felicia Russ MA Active Feeling afraid as if something awful might happen 0 06/13/2025 3:43 PM CDT Felicia Russ MA Active EVA-7 Total Score 4 06/13/2025 3:43 PM CDT Felicia Russ MA Active * [place] Suicide Severity Rating Scale (Screener/Recent Self-Report) Question Answer Date of Assessment Author Status 1. Wish to be (Past 1 Month) No 06/13/2025 3:03 PM CDT Paul Chau MD Active 2. Non-Specific Active Suici johnny Thoughts (Past 1 Month) No 06/13/2025 3:03 PM CDT Paul Chau MD Active 6. Suicidal Behavior (Lifetime) No 06/13/2025 3:03 PM CDT Paul Chau MD Active documented as of this encounter Plan of Treatment Not on file documented as of this encounter Visit Diagnoses Not on filedocumented in this encounter Additional Health Concerns Assessment Noted Time PHQ-9 Depression Total Score: 6 06/13/20 3:43 PM CDT documented as of this encounter Care Teams Adjunct Psychology Professor Relationship Specialty Start Date End Date Paul Chau MD Count includes the [facility] [address] PCP - General INTERNAL MEDICINE 04/19/23 documented as of this encounter
--- OUTSIDE RECORDS SUMMARY | 2025-06-20 10:45 | XMS_ITS | Encounter Summary ---
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
--- OUTSIDE RECORDS SUMMARY | 2025-06-20 10:45 | XMS_ITS | Encounter Summary ---
Author Organization [facility] Address [facility] [place] [address] Care Team Providers Care Foxing Closer Name Role Phone Paul Chau MD Primary Care Provider [phone] Encounter Details Date Type Department Care Team (Latest Contact Info) Description 11/10/2024 Ku6 Message Enc [facility] Medical [facility] Multispecialty Care - [place] [address] [place] [address] [address] [place] [address] [place] [address] [place] [address] [address] [place], [place] [id number] Neurologist Update Social History Tobacco Use Types [...] AM CDT 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 Gender Identity Female 05/21/2025 11:03 AM CDT Sexual Orientation Straight 06/13/2025 2: 01 PM CDT documented as of this encounter Plan of Treatment Not on file documented as of this encounter Visit Diagnoses Not on filedocumented in this encounter Additional Health Concerns Assessment Noted Time PHQ-9 Depression Total Score: 1 05/24/20 24 1:26 PM CDT documented as of this encounter Care Teams Foxing Closer Relationship Specialty Start Date End Date Paul Chau MD [address] [facility] [address] [place] [address] PCP - General INTERNAL MEDICINE 04/19/23 documented as of this encounter
[2025-06-21 07:09] LABS: LH 6.5 mIU/mL (.)
[2025-06-21 11:09] LABS: FSH 11.5 mIU/mL (.)
[2025-06-22 22:07] LABS: Estrogens, Total 72 pg/mL (.)
[2025-06-26 16:08] LABS: Free Testosterone (Direct) 0.4 pg/mL (0.0-4.2)
== END 2025-06-20 10:16 | disposition home or self-care (01) ==
LOC: ANHLAB 10:16
PROVIDERS: PCP Internal Medicine; Visit Provider Obstetrics & Gynecology
DX: N95.1 Menopausal and female climacteric states (principal)
CPT/HCPCS: 82672; 83001; 83002; 84144; 84402; 84403